=== PATIENT | male | born 1965 | race Caucasian/White ===

== ENCOUNTER 2019-06-03 19:49 | Emergency (ER) | payer OTHER, SELFPAY ==
[2019-06-03 19:50] VITALS: BP 127/76; PULSE 107; RESP 16; TEMP 36.7; O2SAT 97; BMI 36.1
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
--- NOTE | 2019-06-03 21:06 | ED.RN ---
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
== END 2019-06-03 22:06 | disposition home or self-care (01) ==
PROVIDERS: Emergency Provider Emergency Medicine; Family Provider Preventive Medicine Occupational Medicine; PCP Preventive Medicine Occupational Medicine
DX: S70.02XA Contusion of left hip, initial encounter (principal); S80.811A Abrasion, right lower leg, initial encounter; V03.10XA Pedestrian on foot injured in collision with car, pick-up truck or van in traffic accident, initial encounter; Y93.01 Activity, walking, marching and hiking; Y92.480 Sidewalk as the place of occurrence of the external cause; I25.10 Atherosclerotic heart disease of native coronary artery without angina pectoris; Z79.02 Long term (current) use of antithrombotics/antiplatelets; Z79.899 Other long term (current) drug therapy
CPT/HCPCS: 73502; 99282

== ENCOUNTER 2019-06-06 19:13 | Emergency (ER) | payer OTHER, SELFPAY ==
[2019-06-06 19:14] VITALS: BP 152/83; PULSE 100; RESP 20; TEMP 36.3; O2SAT 98; BMI 36.3
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
[2019-06-06 22:31] VITALS: RESP 18
== END 2019-06-06 22:34 | disposition home or self-care (01) ==
PROVIDERS: Emergency Provider Emergency Medicine; Family Provider Preventive Medicine Occupational Medicine; PCP Preventive Medicine Occupational Medicine
DX: S87.81XA Crushing injury of right lower leg, initial encounter (principal); S80.811A Abrasion, right lower leg, initial encounter; S80.11XA Contusion of right lower leg, initial encounter; V03.99XA Pedestrian with other conveyance injured in collision with car, pick-up truck or van, unspecified whether traffic or nontraffic accident, initial encounter; Y93.9 Activity, unspecified; Y92.9 Unspecified place or not applicable; Y99.0 Civilian activity done for income or pay; I25.10 Atherosclerotic heart disease of native coronary artery without angina pectoris; I10 Essential (primary) hypertension; K21.9 Gastro-esophageal reflux disease without esophagitis; E11.9 Type 2 diabetes mellitus without complications; Z79.4 Long term (current) use of insulin; Z79.82 Long term (current) use of aspirin; Z79.02 Long term (current) use of antithrombotics/antiplatelets; Z79.899 Other long term (current) drug therapy
CPT/HCPCS: 73590; 73610; 99282

== ENCOUNTER → 2025-05-09 | Outpatient (CLI) | payer OTHER, SELFPAY ==
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
--- OUTSIDE RECORDS SUMMARY | 2025-05-09 10:43 | XMS RPT_ITS | CCD ---
Author Organization [facility] Care Team Providers Care [place] Driver Name Role Phone KEVIN BOOKER DO Primary Care Physician [phone] Kevin Booker DO Primary Care Provider Marine Burgess MD Unavailable Marine Burgess MD Unavailable PAULINE ZAMARRIPA, DR MILTON Swift Attending KEVIN Hudson DO Primary Care Unavailable KEVIN BOOKER DO Attending Unavailable KEVIN BOOKER DO Primary Care Unavailable KEVIN BOOKER DO Attending Unavailable KEVIN BOOKER DO Primary Care Unavailable Kevin Booker DO Primary Care Provider MARINE BURGESS Referring Unavailable MARINE BURGESS Attending Unavailable KEVIN BOOKER Primary Care Unavailable KEVIN BOOKER DO Attending Unavailable KEVIN BOOKER DO Primary Care Unavailable Dr. Kevin Booker DO Primary Care Provider [phone] Dr. Kevin Booker DO Referring Provider Irasema Mayes Attending Provider Irasema Dhillon Referring Unavailable Irasema Dhillon Attending Unavailable Kevin Booker Primary Care Unavailable Kevin Booker Primary Care Unavailable Irasema Dhillon Attending Unavailable Kevin Booker Referring Unavailable Allergies Allergy Classification Reported Allergen(s) Allergy Type Date of Onset Reaction(s) Facility (7 sources) Codeine; Translations: [codeine] Drug Allergy 3 Swelling [facility] (3 sources) dulaglutide; Translations: [dulaglutide] Drug Allergy 0 Nausea and vomiting (disorder) [facility] (1 source) Lidocaine Drug Allergy 5 [facility] (2 sources) Procaine; Translations: [procaine HCl] Drug Allergy 5 [facility] (1 source) Codeine Drug Allergy 5 [facility] (1 source) Lidocaine Drug Allergy 5 [facility] Medications Current Medications Medication Drug Class(es) Dates Sig (Normalized) Sig (Original) acetaminophen 325 mg oral tablet (2 sources) Start: 05-31-2016 take 2 tablets by mouth every four hours as needed acetaminophen (TYLENOL) 325 mg tablet Take 2 tablets by mouth every 4 hours as needed for Fever (For Temp>38.5C). 0 05/31/2016 Active Comment on above: Take 2 tablets by mo uth every 4 hours as needed for Fever (For Temp>38.5C). apixaban 5 mg oral tablet (3 sources) Factor Xa Inhibitor Start: 05-20-2024 take 1 tablet by mouth twice daily apixaban (ELIQUIS) 5 mg tab(s) Take 1 tablet by mouth two times a day. 05/20/2024 Active Start: 10-27-2023 apixaban 5 mg oral tablet Dose : 5 mg = 1 tab(s), Oral, BID, # 60 tab(s), 5 Refill(s), [facility], 183, cm, 10/09/23 14:33:00 EST, Height, 130, kg, 10/09/23 14:33:00 EST, Dosing Weight Start Date: 10/27/23 Status: Ordered Start: 10-09-2023 End: 11-08-2023 Eliquis Starter Pack for Irvin atment of DVT and PE 5 mg oral tablet [10mg BID x 7days-then 5mg BID], Oral, BID, # 74 tab(s), 0 Refill(s), DVT Treatment Dosing, 130 Start Date: 10/09/23 Stop Date: 11/08/23 Status: Ordered Blood Glucose Test Machine (3 sources) Start: 07-15-2021 Blood Glucose Test Machine See Instructions, Use as directed to test blood sugar 4 times daily; this frequently due to fluctuating blood sugars. Brand type per insurance or patient preference, # 1 EA, 0 Refill(s), Pharmacy: [facility], 183, cm, 07/15/21 8:37:00 EDT, Height, 122.1, kg, 07/15/21 8:37:00 EDT, Dosing Weight Start Date: 07/15/21 Status: Ordered clopidogrel 75 mg oral tablet (6 sources) [id number] Platelet Inhibitor Start: 04-20-2018 take 1 tablet by mouth once daily Clopidogrel 75 MG tablet Active 75 mg PO DAILY June 03, 2019 12:00am Comment on above: Take 1 tablet by maverick th once daily. cyclobenzaprine hydrochloride 5 mg oral tablet (2 sources) Muscle Relaxant Start: 05-31-2016 take 1 tablet by mouth every twelve hours as needed cyclobenzaprine (FLEXERIL) 5 mg tablet Take 1 tablet by mouth twice daily as needed for Muscle Spasm. 60 tablet 0 05/31/2016 Active Comment on above: Take 1 tablet by maverick th twice daily as needed for Muscle Spasm. 0.5 ml dulaglutide 3 mg/ml auto-injector (3 sources) GLP-1 Receptor Agonist Start: 07-27-2019 dulaglutide (TRULICITY) 1.5 mg/0.5 mL pnij 1.5 mg weekly 4 Pen 07/27/2019 Active Start: 06-03-2019 End: 02-04-2021 Dulaglutide 0.75 MG/0.5 ML p en injector Discontinued 0.75 mg SQ EVERY WEEK June 03, 2019 12:00am February 04, 2021 8:23am TUESDAYS Comment on above: 1.5 mg weekly flash glucose sensor (FREESTYLE NIKI 14 DAY SENSOR) kit (2 sources) Start: 07-27-20 flash glucose sensor (FREESTYLE NIKI 14 DAY SENSOR) kit Apply subcutaneously every 14 days to monitor blood sugar. 2 Kit 07/27/2019 Active Comment on above: Apply subcutaneously every 14 days to monitor blood sugar. fluticasone propionate 0.05 mg/actuat metered dose nasal spray (2 sources) Corticosteroid take 2 spray(s) nasal route once daily fluticasone (FLONASE) 50 mcg/actuation nasal spray Use 2 Sprays in each nostril once daily. Active Comment on above: Use 2 Sprays in each nostril once daily. losartan potassium 25 mg oral tablet (6 sources) Angiotensin 2 Receptor [place] Start: 11-06-19 23 losartan (COZAAR) 25 mg tablet 25 mg. 11/06/2022 Active Start: 10-09-2021 Losartan 50 mg tablet Active NMA PO October 09, 2021 1:00am Comment on above: 25 mg. magnesium oxide 400 mg oral tablet (2 sources) Start: 6 take 1 tablet by mouth twice daily magnesium oxide (MAG-OX) 400 mg tablet Take 1 tablet by mouth twice daily. 0 05/31/2016 Active Comment on above: Take 1 tablet by maverick th twice daily. MULTIVITAMIN-FERROUS FUMARATE-FOLIC ACID 18 MG-400 MCG TABLET (2 sources) Start: 6 take 1 tablet by mouth once daily MULTIVITAMIN-FERROUS FUMARATE-FOLIC ACID 18 MG-400 MCG TABLET Take 1 tablet by mouth once daily. 0 05/31/2016 Active Comment on above: Take 1 tablet by maverick th once daily. pantoprazole 40 mg delayed release oral tablet (4 sources) Proton Pump Inhibitor Start: 9 take 1 tablet by mouth once daily pantoprazole 40 mg oral enteric coated tablet See Instructions, TAKE 1 TABLET BY MOUTH DAILY, # 90 tab(s), 3 Refill(s), [facility]), 183, cm, 11/06/22 8:00:00 EST, Height, kg, 11/06/22 8:00:00 EST, Dosing Weight Start Date: 11/06/22 Status: Ordered Pen needles 5 mm (3 sources) Start: 3 Pen needles 5 mm See Instructions, Use 1 needle 5 times daily to inject insulins; diagnosis: E 11.9, # 450 EA, 3 Refill(s), Pharmacy: [facility] ([facility]), Diabetes, 183, cm, 11/06/22 8:00:00 EST, Height, 125.9, kg, 11/06/22 8:00:00 EST, Dosing Weight Start Date: 11/06/22 Status: Ordered traMADol hydrochloride 50 mg oral tablet (2 sources) Opioid Agonist Start: 6 take 1 tablet by mouth every six hours as needed traMADol (ULTRAM) 50 mg tablet Take 1 tablet by mouth every 6 hours as needed. 40 tablet 0 05/31/2016 Active Comment on above: Take 1 tablet by maverick th every 6 hours as needed. Completed/Discontinued Medications Medication Drug Class(es) Dates Sig (Normalized) Sig (Original) aspirin 81 mg chewable tablet (1 source) Platelet Aggregation Inhibitor, Nonsteroidal Anti-inflammatory Drug Start: 05-31-2016 End: 05-20-2023 take 2 tablets by mouth once daily aspirin 81 mg chewable tablet Take 2 tablets by mouth once daily. 0 05/31/2016 05/20/2023 Discontinued Comment on above: Take 2 tablets by mo [facility] once daily. atorvastatin 80 mg oral tablet (6 sources) HMG-CoA Reductase Inhibitor Start: 01-25-2016 End: 03-03-2025 take 1 tablet by mouth at bedtime Atorvastatin 80 MG tablet Discontinued 80 mg PO AT BEDTIME June 03, 2019 12:00am March 03, 2025 9:26am Comment on above: Take 1 tablet by maverick once daily. gabapentin 800 mg oral tablet (3 sources) Anti-epileptic Agent Start: 12-25-2014 End: 02-04-2021 Gabapentin 800 MG tablet Discontinued 600 mg PO DAILY December 25, 2014 12:00am February 04, 2021 8:22am take 800 mg by mouth three times daily GABAPENTIN ORAL Take 800 mg by mouth three times daily. Active Comment on above: Take 800 mg by mouth three times daily. 3 ml insulin aspart, human 100 unt/ml pen injector (6 sources) Insulin Analog Start: 11-06-2022 End: 11-01-2023 inject 1 dose by subcutaneous injection four times daily NovoLOG FlexPen 100 units/mL injectable solution Dose : 60 unit(s) =, Subcutaneous, QID, # 216 mL, 3 Refill(s), Pharmacy: [facility] ([facility]), 183, cm, 11/06/22 8:00:00 EST, Height, kg, 11/06/22 8:00:00 EST, Dosing Weight Start Date: 11/06/22 Stop Date: 11/01/23 Status: Ordered Start: 06-03-2019 Insulin Aspart U-100 100 UNITS/ML insulin pen Active 0 U SC 3 TIMES DAILY WITH MEALS June 03, 2019 12:00am Please contact the information source for Protocol details. insulin aspart ( NOVOLOG FLEXPEN) 100 unit/mL inpn Indications: Uncontrolled type 2 diabetes mellitus with complication, with long-term current use of insulin Inject subcutaneously daily with breakfast. Sliding scale according to meter reading. 10 to 30 Active Comment on above: Inject subcutaneously daily with breakfa st. Sliding scale according to meter reading. 10 to 30 3 ml insulin degludec 200 unt/ml pen injector (7 sources) Insulin Analog Start: 11-06-19 End: 11-01-19 inject 1 dose by subcutaneous injection once daily Tresiba FlexTouch 200 units/mL 3 mL subcutaneous solution Dose : 130 unit(s) =, Subcutaneous, qDay, # 120 mL, 3 Refill(s), Pharmacy: [facility]), 183, cm, 11/06/22 8:00:00 EST, Height, kg, 11/06/22 8:00:00 EST, Dosing Weight Start Date: 11/06/22 Stop Date: 11/01/23 Status: Ordered Start: 10-09-2021 End: 11-01-2023 inject 1 dose by subcutaneous injection once daily Tresiba FlexTouch 200 units/mL 3 mL subcutaneous solution Dose : 140 unit(s) =, Subcutaneous, qDay, # 9 mL, 3 Refill(s), Pharmacy: [facility]), 183, cm, 11/06/22 8:00:00 EST, Height, kg, 11/06/22 8:00:00 EST, Dosing Weight Start Date: 11/06/22 Stop Date: 11/01/23 Status: Ordered Start: 06-03-2019 End: 02-04-2021 Insulin Degludec 100 UNIT/ML insulin pen Discontinued 100 U SQ AT BEDTIME June 03, 2019 12:00am February 04, 2021 8:22am Start: 09-23-2016 insulin deglud ec (TRESIBA FLEXTOUCH U-200) 200 unit/mL (3 mL) injection Indications: Uncontrolled type 2 diabetes mellitus with complication, with long-term current use of insulin Use up to 100 units daily 09/23/2016 Active Comment on above: Use up to 100 units daily lisinopril 10 mg oral tablet (2 sources) Angiotensin Converting Enzyme Inhibitor Start: 5 End: 3 take 1 tablet by mouth once daily lisinopril (PRINIVIL) 10 mg tablet Take 1 tablet by mouth once daily. 0 07/21/2016 05/20/2023 Discontinued Comment on above: Take 1 tablet by maverick th once daily. 60 actuat testosterone 30 mg/actuat topical solution (5 sources) Androgen Start: 3 End: 3 testosterone 30 mg/actuation transdermal solution 2 pump(s), Transdermal, qDay, # 330 mL, 1 Refill(s), Pharmacy: [facility] ([facility]), Hypogonadism male, 183, cm, 11/06/22 8:00:00 EST, Height, 125.9, kg, 11/06/22 8:00:00 EST, Dosing Weight Start Date: 11/06/22 Stop Date: 05/05/23 Status: Ordered testosterone (AX IRON) 30 mg/actuation (1.5 mL) slpm Apply as directed. Active Comment on above: Apply as directed. Problems Active Problems Problem Classification Problem Date Documented Da te Episodic/Chronic Acute myocardial infarction (1 source) Myocardial infarction; Translations: [Non-ST elevation (NSTEMI) myocardial infarction] 12-26-2014 Chronic Coronary atherosclerosis and other heart disease (7 sources) Coronary arteriosclerosis in [place] artery; Translations: [Coronary arteriosclerosis] Onset: 5 07-11-2019 Chronic Coronary atherosclerosis and other heart disease (4 sources) Drug coated stent in circumflex branch of left coronary artery; Translations: [Presence of coronary angioplasty implant and graft] Onset: 6 05-20-2023 Episodic Diabetes mellitus without complication (5 sources) Diabetes mellitus; Translations: [Type 2 diabetes mellitus without complications] Onset: 3 Resolved: 5 07-11-2019 Chronic Diseases of mouth; excluding dental (3 sources) Ulcer of mouth 10-02-2020 Episodic Disorders of lipid metabolism (5 sources) Hyperlipidemia; Translations: [Hyperlipidemia, unspecified] Onset: 3 08-10-2019 Chronic Esophageal disorders (3 sources) Gastroesophageal reflux disease without esophagitis 07-11-2019 Chronic Essential hypertension (4 sources) Essential hypertension; Translations: [Hypertensive disorder] 08-10-2019 Chronic Genitourinary symptoms and ill-defined conditions (2 sources) Urinary incontinence; Translations: [Unspecified urinary incontinence] Onset: 5 03-08-2015 Chronic Nonspecific chest pain (2 sources) Chest discomfort; Translations: [Other chest pain] Onset: 3 Resolved: 5 01-24-2015 Episodic Other connective tissue disease (1 source) Impingement syndrome of shoulder region; Translations: [Impingement syndrome of right shoulder] 02-04-2021 Episodic Other endocrine disorders (3 sources) Male hypogonadism 07-11-2019 Chronic Other gastrointestinal disorders (2 sources) Diarrhea 10-07-2023 Episodic Other liver diseases (2 sources) Steatosis of liver; Translations: [Fatty (change of) liver, not elsewhere classified] Onset: 5 01-03-2015 Chronic Other lower respiratory disease (3 sources) Chronic cough 01-14-2021 Episodic Other nervous system disorders (2 sources) Thoracic outlet syndrome; Translations: [Brachial plexus disorders] Onset: 3 06-07-2013 Chronic Other nervous system disorders (1 source) Neuropathy; Translations: [Polyneuropathy, unspecified] 12-25-2014 Chronic Other non-traumatic joint disorders (2 sources) Multiple joint pain 10-07-2023 Episodic Other non-traumatic joint disorders (1 source) Pain in left shoulder; Translations: [Left shoulder pain] 02-04-2021 Episodic Other non-traumatic joint disorders (1 source) Pain in right shoulder; Translations: [Right shoulder pain] 02-04-2021 Episodic Phlebitis; thrombophlebitis and thromboembolism (3 sources) Acute deep vein thrombosis of lower limb; Translations: [Acute embolism and thrombosis of unspecified deep veins of unspecified lower extremity] Onset: Episodic Residual codes; unclassified (5 sources) Sleep apnea; Translations: [Sleep apnea, unspecified] Onset: 5 08-09-2019 Chronic Residual codes; unclassified (2 sources) Obstructive sleep apnea syndrome; Translations: [Obstructive sleep apnea (adult) (pediatric)] Onset: 3 09-09-2021 Chronic Residual codes; unclassified (3 sources) Chronic pain 01-13-2020 Episodic Residual codes; unclassified (3 sources) Edema of lower extremity 01-16-2021 Episodic Residual codes; unclassified (2 sources) At risk for infection 10-07-2023 Episodic Residual codes; unclassified (1 source) Localized edema; Translations: [Localized edema] Onset: 5 Episodic Spondylosis; intervertebral disc disorders; other back problems (12 sources) Backache; Translations: [Dorsalgia, unspecified] Onset: 3 10-19-2014 Episodic Superficial injury; contusion (1 source) Contusion of hip; Translations: [Contusion of left hip, initial encounter] 06-04-2019 Episodic Unclassified (3 sources) Medication refused 09-11-2021 Unclassified (9 sources) Patient encounter status 07-11-2019 Unclassified (2 sources) Type 2 diabetes mellitus without complication; Translations: [Diabetes mellitus type 2, uncontrolled, without complications] Onset: 5 01-24-2015 Past or Other Problems Problem Classification Problem Date Documented Da te Episodic/Chronic Other screening for suspected conditions (not mental disorders or infectious disease) (2 sources) Decreased testosterone level ; Translations: [Other specified abnormal findings of blood chemistry] Onset: 02-27-2015 02-27-2015 Episodic Unclassified (1 source) Abrasion, right lower leg, initial encounter 06-04-2019 Results Test Name Value Interpretation Reference Range Facility MR/BMSSg 03-03-2025 MR/BMSKAILA [facility] [address] [place] [address]. [address] [place] [address] OFFICE VISIT Date of Service: 03/03/25 MR#: [id number] Acct: [id number] Name: JOHN CHAPA Fuad Rep #: [id number] : 1965 Provider: DIAZ Yee Age/Sex: 59/M Location: [facility] Status: Signed Intake Vital Signs 03/03/25 09:27 Height 6 ft Weight: 290 lb BMI 39.3 BP 142/78 H Blood Pressure Location Lt brachial Position Sitting Respiration 16 Pulse 89 Pulse Source Monitor Temp 99.6 F H Temp Source Temporal Pulse Oximetry (%) 96 Oxygen Delivery Method room air Intake Visit Reasons: Second opinion, varicose Chief Complaint: cp Is patient in pain?: Yes Allergies codeine Allergy (Verified 03/03/25 09:25) Anaphylaxis lidocaine Adverse Reaction (Verified 03/03/25 09:25) Rash procaine HCl (From Novocain) Adverse Reaction (Verified 03/03/25 09:25) Rash Medications ???Medication ???Instructions ???Recorded ???Confirmed ???Type clopidogrel 75 mg tablet 75 mg PO DAILY 06/03/19 03/03/25 H istory insulin aspart U-100 100 unit/mL See Protocol subcut TIDCM 06/03/19 03/03/25 History (3 mL) subcutaneous pen pantoprazole 40 mg tablet,delayed 40 mg PO DAILY 06/03/19 03/03/25 History release insulin degludec 200 unit/mL (3 ml subcut 10/09/21 03/03/25 Histor y mL) subcutaneous pen lancets 30 gauge #100 ea 10/09/21 03/03/25 History losartan 50 mg tablet tablet PO 10/09/21 03/03/25 Histor y pen needle, diabetic 31 gauge x #50 ea 10/09/21 03/03/25 History 11/27 Have you fallen in the past year?: No PFSH Surgical History History of open heart surgery Family History (Updated 03/03/25 @ 09:24 by Opal Martines MA) Mother Cancer Father Diabetes Heart disease Myocardial infarction Grandfather Myocardial infarction Other Hypertension Sudden cardiac Social History household members: spouse Smoking Status: Never smoker alcohol intake: never HPI HPI HPI: JOHN CHAPA, is a 59 M who presents to the office today for consultation regarding varicose veins. He has previously followed with Dr. Tatum, we received some records which I reviewed. In Aug 2024, he was diagnosed with a acute DVT up to the L femoral vein, in January 2024 had duplex showing only chronic DVT residual in the L popliteal and gastroc veins, 11/21/24 he had L GSV EVLT, 12/05/24 he had R GSV Venaseal ablation, in 12/2024 he had R distal GSV Varithena and L distal GSV Varithena. He had venous ultrasound 02/08/25 at [facility] which reported successful R GSV ablation, L GSV ablation and no remaining varicosities and had appt with Dr. Tatum the same day with plan for repeat ultrasound in 6 months to re-evaluate chronic popliteal DVT He reports he was told he could stop the Eliquis but did not feel comfortable doing so because they did not tell him why it was safe to do so when he still supposedly had L popliteal clot. He reports that he has actually had increased pain and swelling in his RLE since the ablations that was not present prior, he reports he had no issues in the RLE prior to the ablations and does not really understand why he had to have them. For these reasons, he has elected to seek a second opinion at our office. With respect to the LLE DVT, this was his first DVT. Shortly prior to the DVT diagnosis he'd had COVID and had significant symptoms and decreased activity with that. 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 He does also have significant disc disease in his back.He denies any family history of VTE or clotting disorders. He has been on Eliquis without stopping since Aug 2024. 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 Currently, his primary complaint is residual swelling and discomfort in his legs. 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 He is most bothered by the persistent tenderness to touch and sensation of pruritus/tingling along his medial R calf. He also has noticed increased tingling/numbness in his bilateral feet since the venous procedures as well though again he does notably have both byron (more content not included)... Normal [facility] TFTESTon 12-16-2024 Free Testost Direct 3.9 pg/mL Low 6.6-18.1 [facility] Comment on above: Result Comment: Perf ormed At: [facility] [address] [id number] Brian Mao MD Ph:[phone] Performed At: [facility] [address] [id number] Elena Ozuna PhD Ph:[phone] Performed By: #### L IPID, CMP, A1C, PSA, GFR, [id number] #### [address] [address] Testosterone Lvl 145 ng/dL Low 264-916 [facility] Comment on above: Result Comment: Adul t male reference interval is based on a population of healthy nonobese males (BMI <30) between 19 and 39 years old. hugo Saleem.al. JCEM 2017,102;[id number]. PMID: [id number]. Performed By: #### L IPID, CMP, A1C, PSA, GFR, [id number] #### [address] [address] .Auto Diffon 12-09-2024 Basophil, Absolute 0.0 10 3/mcL Normal 0.0-0.2 [facility] Comment on above: Performed By: #### A DIFF, CBC, ANEU #### [address] [address] Basophils/100 WBC (Bld) 0.5 % Normal 0.0-2.5 [facility] Comment on above: Performed By: #### A DIFF, CBC, ANEU #### [address] [address] Eosinophil, Absolute 0.2 10 3/mcL Normal 0.0-0.[address] [facility] Comment on above: Performed By: #### A DIFF, CBC, ANEU #### [address] [address] Eosinophils/100 WBC (Bld) 3.0 % Normal 0.0-7.0 [facility] Comment on above: Performed By: #### A DIFF, CBC, ANEU #### [address] [address] Lymphocyte, Absolute 1.9 10 3/mcL Normal 0.9-4.[address] [facility] Comment on above: Performed By: #### A DIFF, CBC, ANEU #### [address] [address] Lymphocytes/100 WBC (Bld) 28.0 % Normal 20.0-40.0 [facility] Comment on above: Performed By: #### A DIFF, CBC, ANEU #### [address] [address] Monocyte, Absolute 0.5 10 3/mcL Normal 0.1-1.4 [facility] Comment on above: Performed By: #### A DIFF, CBC, ANEU #### [address] [address] Monocytes/100 WBC (Bld) 7.3 % Normal 2.0-13.0 [facility] Comment on above: Performed By: #### A DIFF, CBC, ANEU #### [address] [address] Neutrophils/100 WBC (Bld) 61.2 % Normal 50.0-75.0 [facility] Comment on above: Performed By: #### A DIFF, CBC, ANEU #### [address] [address] .GFRon 12-09-2024 Estimated Glomerular Filtration Rate 85 ml/min/1.73sqm Normal [facility] Comment on above: Result Comment: Stages of Chronic Kidney Disease (CKD) Stage Description eGFR(ml/min/1.73 sq.m.) CKD 1 Normal kidney function or >=90 normal kindney function with possible kidney damage (ex. Proteinuria) CKD 2 Kidney damage with mild loss 60-89 of kidney function CKD 3a Mild to moderate loss of kidney 45-59 function CKD 3b Moderate to severe loss of 30-44 of kindey function CKD 4 Severe loss of kidney function 15-29 CKD 5 Kidney failure <15 Note: (go live 2024) the eGFR calculation was updated to the 2020 CKD-EPI creatinine equation without a race factor to calculate the eGFR results. Performed By: #### L IPID, CMP, A1C, PSA, GFR, [id number] #### [address] [address] .NEUABSon 12-09-2024 Neutrophil, Absolute 4.3 10 3/mcL Normal 2.3-8.[address] [facility] Comment on above: Performed By: #### A DIFF, CBC, ANEU #### [address] [address] A1Con 12-09-2024 Glucose [Mass/Vol] 163 mg/dL Normal [facility] Comment on above: Result Comment: Jessenia mated Average Glucose calculated by equation ((28.7xA1C)-46.7) Estimated average glucose (eAG) is a calculated value from Hemoglobin A1C and is textile designs sales representative of the average blood glucose level in the last 2-3 month period. Normal range: less than 114 mg/dL Performed By: #### L IPID, CMP, A1C, PSA, GFR, [id number] #### [place] [address] HbA1c (Bld) [Mass fraction] 7.3 % High 4.3-6.4 [facility] [place] Comment on above: Performed By: #### L IPID, CMP, A1C, PSA, GFR, [id number] #### [address] [address] CBCon 12-09-2024 Erythrocyte distribution width (RBC) [Ratio] 12.8 % Normal 11.5-15.5 [facility] [place] Comment on above: Performed By: #### A DIFF, CBC, ANEU #### [place] [address] Hematocrit (Bld) [Volume fraction] 47.5 % Normal 40.0-52.0 [facility] [place] Comment on above: Performed By: #### A DIFF, CBC, ANEU #### [place] [address] Hgb 16.4 G/dL Normal 13.0-17.5 [facility] [place] Comment on above: Performed By: #### A DIFF, CBC, ANEU #### [place] [id number] MCH (RBC) [Entitic mass] 33.1 pg High 27.0-33.0 [facility] [place] Comment on above: Performed By: #### A DIFF, CBC, ANEU #### [address] [address] MCHC 34.6 G/dL Normal 32.0-36.0 [facility] [place] Comment on above: Performed By: #### A DIFF, CBC, ANEU #### [address] [address] MCV (RBC) [Entitic vol] 95.8 fL Normal 81.0-100.0 [facility] [place] Comment on above: Performed By: #### A DIFF, CBC, ANEU #### [address] [address] Platelet 242 10 3/mcL Normal 150-450 [facility] [place] Comment on above: Performed By: #### A DIFF, CBC, ANEU #### [address] [address] Platelet mean volume (Bld) [Entitic vol] 7.7 fL Normal 6.4-10.5 [facility] [place] Comment on above: Performed By: #### A DIFF, CBC, ANEU #### [address] [address] RBC 4.96 10 6/mcL Normal 4.50-6.00 [facility] [place] Comment on above: Performed By: #### A DIFF, CBC, ANEU #### [address] [address] WBC 6.9 10 3/mcL Normal 4.5-10.8 [facility] [place] Comment on above: Performed By: #### A DIFF, CBC, ANEU #### [address] [address] CMPon 12-09-2024 Albumin Level 3.7 G/dL Normal 3.4-4.8 [facility] [place] Comment on above: Performed By: #### L IPID, CMP, A1C, PSA, GFR, [id number] #### [address] [address] Albumin/Globulin [Mass ratio] 1.0 {ratio} Low 1.1-2.5 [facility] [place] Comment on above: Performed By: #### L IPID, CMP, A1C, PSA, GFR, [id number] #### [address] [address] ALP [Catalytic activity/Vol] 79 U/L Normal 40-135 [facility] [place] Comment on above: Performed By: #### L IPID, CMP, A1C, PSA, GFR, [id number] #### [address] [address] ALT [Catalytic activity/Vol] 36 U/L Normal 16-63 [facility] [place] Comment on above: Performed By: #### L IPID, CMP, A1C, PSA, GFR, [id number] #### [address] [address] AST [Catalytic activity/Vol] 17 U/L Normal 10-40 [facility] [place] Comment on above: Performed By: #### L IPID, CMP, A1C, PSA, GFR, [id number] #### [address] [address] Bili Total 0.5 mg/dL Normal 0.2-1.0 [facility] [place] Comment on above: Result Comment: Use of this assay is not recommended for patients undergoing treatment with eltrombopag due to the potential for falsely elevated results. Performed By: #### L IPID, CMP, A1C, PSA, GFR, [id number] #### [address] [address] BUN/Creatinine Ratio 24 ratio Normal 7-27 [facility] Comment on above: Performed By: #### L IPID, CMP, A1C, PSA, GFR, [id number] #### [address] [address] Calcium [Mass/Vol] 9.5 mg/dL Normal 8.4-10.2 [facility] Comment on above: Performed By: #### L IPID, CMP, A1C, PSA, GFR, [id number] #### [address] [address] Chloride [Moles/Vol] 99 mmol/L Normal 98-107 [facility] Comment on above: Performed By: #### L IPID, CMP, A1C, PSA, GFR, [id number] #### [address] [address] CO2 [Moles/Vol] 26 mmol/L Normal 23-31 [facility] [place] Comment on above: Performed By: #### L IPID, CMP, A1C, PSA, GFR, [id number] #### [address] [address] Creatinine [Mass/Vol] 1.01 mg/dL Normal 0.70-1.30 [facility] Comment on above: Result Comment: Test ing performed on [employer] Dimension EXL analyzer using a modified kinetic Dave technique. Performed By: #### L IPID, CMP, A1C, PSA, GFR, [id number] #### [address] [address] Electrolyte Balance 8.0 mEq/L Normal 4.0-15.0 [facility] Comment on above: Performed By: #### L IPID, CMP, A1C, PSA, GFR, [id number] #### [address] [address] Globulin 3.8 G/dL Normal 1.5-3.8 [facility] [place] Comment on above: Performed By: #### L IPID, CMP, A1C, PSA, GFR, [id number] #### [address] [address] Glucose [Mass/Vol] 229 mg/dL High 80-115 [facility] Comment on above: Performed By: #### L IPID, CMP, A1C, PSA, GFR, [id number] #### [address] [address] Potassium [Moles/Vol] 3.8 mmol/L Normal 3.5-5.1 [facility] Comment on above: Performed By: #### L IPID, CMP, A1C, PSA, GFR, [id number] #### [address] [address] Sodium [Moles/Vol] 133 mmol/L Low 136-145 [facility] Comment on above: Performed By: #### L IPID, CMP, A1C, PSA, GFR, [id number] #### [address] [address] Total Protein 7.5 G/dL Normal 6.4-8.2 [facility] [place] Comment on above: Performed By: #### L IPID, CMP, A1C, PSA, GFR, [id number] #### [address] [address] Urea nitrogen [Mass/Vol] 24 mg/dL High 7-18 [facility] [place] Comment on above: Performed By: #### L IPID, CMP, A1C, PSA, GFR, [id number] #### [address] [address] LIPIDon 12-09-2024 Cholesterol [Mass/Vol] 214 mg/dL High 0-200 [facility] [place] Comment on above: Result Comment: Chol esterol Reference Interval: Less than 200 Desirable 200-239 Borderline high risk 240 and above High risk Performed By: #### L IPID, CMP, A1C, PSA, GFR, [id number] #### [address] [address] Cholesterol in HDL [Mass/Vol] 40 mg/dL Normal 40-60 [facility] [place] Comment on above: Performed By: #### L IPID, CMP, A1C, PSA, GFR, [id number] #### [address] [address] Cholesterol in LDL [Mass/Vol] 115 mg/dL Normal 0-130 [facility] [place] Comment on above: Performed By: #### L IPID, CMP, A1C, PSA, GFR, [id number] #### [address] [address] Triglyceride [Mass/Vol] 297 mg/dL High 0-150 [facility] [place] Comment on above: Result Comment: Trig lyceride Reference Interval: Less than 150 Normal 150-199 Borderline high risk 200-499 High risk 500 or higher Very high risk Performed By: #### L IPID, CMP, A1C, PSA, GFR, [id number] #### [facility] [address] [place], [place] [address] PSAon 12-09-2024 Prostate Specific Antigen 0.25 ng/mL Normal 0.00-4.00 [facility] [place] Comment on above: Performed By: #### L IPID, CMP, A1C, PSA, GFR, [id number] #### [facility] [address] [place], [place] [address] CNOVon 05-20-2024 CNOV Office Visit (CARDAV ) JOHN CHAPA ([id number]) 1965 M [facility] Time Provider Department 05/20/24 8:20 AM MARINE BURGESS During your visit today, we recorded the following information about you: Pulse Blood pressure Weight Height 92/minute 134/82 129.3 kg 1.829 m Marine Burgess MD 05/20/2024 8:52 AM Signed SUBJECTIVE: HPI: The patient is an extremely pleasant, 59-year-old gentleman, with a high risk factor profile for coronary artery disease, including family history of premature onset coronary disease and diabetes. The patient has well-documented coronary artery disease, having undergone drug-eluting stent ? 2 deployment to a ramus intermedius lesion at [facility] in December 2014. Catheterization also revealed mild left anterior descending disease and well-preserved left ventricular ejection fraction. At [facility] provocative nuclear testing, April 2016, there was evidence of 10% left ventricular mass ischemia, in the left anterior descending distribution. PROCEDURE: Left heart catheterization, selective coronary arteriogram, left ventriculogram and visualization of left internal mammary artery. FINDINGS: Hemodynamics: LV pressure: 116/EDP 15. Aortic Pressure: 112/69 mean 89. COMMENT: There was no gradient demonstrated from LV to aorta pullback. CORONARY ARTERIES: COMMENT: There is evidence of mild calcification of the coronary skeleton. LEFT MAIN: This is a large caliber, medium length, normal vessel. LEFT ANTERIOR DESCENDING: This is a medium to large caliber vessel with evidence of a 99% ostial/proximal stenosis with severe eccentric plaque as well as a 40% mid vessel stenotic segment. There is SALINAS grade 2 flow in the left anterior descending. RAMUS INTERMEDIUS: This is a large caliber vessel with evidence of widely patent previously deployed stents. CIRCUMFLEX: This is a large caliber, normal vessel. RIGHT CORONARY ARTERY: This is a large caliber, dominant vessel demonstrating 30% proximal luminal irregularity as well as 30% midvessel stenosis. LEFT INTERNAL MAMMARY ARTERY: This vessel was visualized via left subclavian cannulation. The left internal mammary artery is a medium caliber, widely patent vessel. LEFT VENTRICULOGRAM: This was obtained in the HENDERSON projection only. The left ventricle does not appear dilated. There are no discrete regional wall motion abnormalities. Left ventricular ejection fraction is normal, estimated at 60%. The ascending aorta is normal in caliber. The aortic valve appears trileaflet. There is no evidence of mitral regurgitation. IN SUMMARY: 1. Severe left anterior descending disease. 2. Mild right coronary artery disease. 3. Normal left ventricular function with ejection fraction estimated at 60%. The patient underwent coronary artery bypass grafting x 1 with left internal mammary artery to the left anterior descending, May 2016. The patient underwent evaluation by the electrophysiology service for chronic persistent sinus tachycardia. Atenolol was introduced but the patient was intolerant and the drug was discontinued. The patient had been lost to follow-up, due to loss of insurance coverage Echocardiogram, May 2019, revealed preserved left ventricular systolic function with an ejection fraction of 66%. There was evidence of mild dilatation of the ascending aorta, with the mid ascending aorta dimension of 3.4 cm. The patient had been lost to follow-up and [facility]. The patient has ongoing treatment for DVT, through Dr. Tatum, in [place]. CARDIAC HISTORY: SYMPTOMS: Chest pain/discomfort: No, Palpitations:No, Arrhythmia: No Dyspnea: No, Dyspnea at rest: No, Nocturnal dyspnea: Yes Orthopnea: No, Diaphoresis: No, Dizziness: No, Syncope: No, Edema: No, Nocturia: No, Impaired exercise tolerance: No, Claudication:No CONDITIONS: Hypertension: No, Heart failure:No, [place] [employer] Association Functional Classification: Class II, Atrial fibrillation:No, History of myocardial infarction/angina: Yes, History of CABG/PCI:Yes, Valvular heart disease: No, Cardiomyopathy: No, Aortic diseases: No, Peripheral vascular disease: No, History of cerebrovascular accident: No, History of pulmonary embolism No, History of DVT Yes. History of rheumatic fever: No, History of transient ischemic attacks: No, Congenital heart disease: No, Pericarditis: No, Pericardial Effusion: No CORONARY RISK FACTORS: Family history of coronary artery disease Yes: Family history CAD in a first degree relative brother Premature onset: Yes, Tobacco use No, Sedentary lifestyle Yes, Hypertension No, Hyperlipidemia Yes, Diabetes mellitus Yes, Obesity Yes, Peripheral vascular disease No. HISTORIES: FAMILY HISTORY Father: Coronary Artery Disease (dies at age of 54 [place] 99% Had CHF) Brother: Coronary Artery Disease (LAD block (more content not included)... Normal [facility] [id number] 05-20-2024 ECG01 Ventricular Rate : 9 2 BPM Atrial Rate : 92 BPM P-R Interval : 138 ms QRS Duration : 102 ms Q-T Interval : 378 ms QTC Calculation(Bazett) : 467 ms Calculated P [place] : 62 degrees Calculated R [place] : 65 degrees Calculated T [place] : 18 degrees NORMAL SINUS RHYTHM INCOMPLETE RIGHT BUNDLE BRANCH BLOCK Confirmed by LYDIA CASH MD ([id number]) on 06/06/2024 11:16:58 AM NAME : JOHN CHAPA PID : [id number] : 1965 Gender : Male Race : ORD : Procedure Date : May 20 2024 08:27:28 Edit Date : Jun 06 2024 11:17:01 Diagnosis: NORMAL SINUS RHYTHM INCOMPLETE RIGHT BUNDLE BRANCH BLOCK Confirmed by LYDIA CASH MD ([id number]) on 06/06/2024 11:16:58 AM Test Reason : Location : 192 : AVCRD Overread By : LYDIA CASH MD Edited By : LYDIA CASH MD Referred By : MARINE BURGESS Acquired by : , Normal [facility] ANAon 11-05-2023 Nuclear Ab IF (S) [Titer] 40 {titer} Normal Neg 40 On License Of [facility] ([place]) Comment on above: Result Comment: JODY Screen and Titer methodology is an immunofluorescent technique utilizing Hep2 Substrate. Performed By: #### A DIFF, CBC, BMP, GFR, TROPHS, MDW, PBNP, ANEU #### [facility] [place] [address] [place], [place] [address] LMERLYon 11-05-2023 Lyme Total Antibody HELLEN Negative Normal Negative On License Of [facility] ([place]) Comment on above: Result Comment: Lyme antibodies not detected. Reflex testing is not indicated. No laboratory evidence of infection with B. burgdorferi (Lyme disease). Negative results may occur in patients recently infected (less than or equal to 14 days) with B. burgdorferi. If recent infection is suspected, repeat testing on a new sample collected in 7 to 14 days is recommended. Performed At: [address] [id number] Elena Ozuna PhD Ph:[phone] Performed By: #### A DIFF, CBC, BMP, GFR, TROPHS, MDW, PBNP, ANEU #### [place] [id number] RFon 11-05-2023 Rheumatoid Factor <6.0 Normal <=5.9 On License Of [facility] ([place]) Comment on above: Result Comment: RF I gM Antibody by Enzyme Immunoassay: Negative < or = 6 Positive > 6 A positive result indicates the presence of RF antibodies and suggests the possibility of rheumatoid arthritis. A negative result indicates no RF IgM antibody or levels below the negative cut-off of the assay. Results of this assay should be used in conjunction with clinical findings and other serological tests. These results were obtained with the [employer] QUANTA Lite RF IgM DC. RF IgM values obtained with different manufacturers' assay methods may not be used interchangeably. The magnitude of the reported IgM levels cannot be correlated to an endpoint titer. Performed By: #### A DIFF, CBC, BMP, GFR, TROPHS, MDW, PBNP, ANEU #### [address] [address] .Auto Diffon 11-04-2023 Basophil, Absolute 0.1 10 3/mcL Normal 0.0-0.2 [facility] ([place]) Comment on above: Performed By: #### A DIFF, CBC, BMP, GFR, TROPHS, MDW, PBNP, ANEU #### [address] [address] Basophils/100 WBC (Bld) 0.8 % Normal 0.0-2.5 On [facility] ([place]) Comment on above: Performed By: #### A DIFF, CBC, BMP, GFR, TROPHS, MDW, PBNP, ANEU #### [address] [address] Eosinophil, Absolute 0.2 10 3/mcL Normal 0.0-0.4 [facility] ([place]) Comment on above: Performed By: #### A DIFF, CBC, BMP, GFR, TROPHS, MDW, PBNP, ANEU #### [address] [address] Eosinophils/100 WBC (Bld) 2.8 % Normal 0.0-7.0 On License [facility] ([place]) Comment on above: Performed By: #### A DIFF, CBC, BMP, GFR, TROPHS, MDW, PBNP, ANEU #### [address] [address] Lymphocyte, Absolute 2.2 10 3/mcL Normal 0.8-3.9 [facility] ([place]) Comment on above: Performed By: #### A DIFF, CBC, BMP, GFR, TROPHS, MDW, PBNP, ANEU #### [address] [address] Lymphocytes/100 WBC (Bld) 31.7 % Normal 10.0-50.0 On License [facility] ([place]) Comment on above: Performed By: #### A DIFF, CBC, BMP, GFR, TROPHS, MDW, PBNP, ANEU #### [address] [address] Monocyte, Absolute 0.7 10 3/mcL Normal 0.2-1.0 [facility] ([place]) Comment on above: Performed By: #### A DIFF, CBC, BMP, GFR, TROPHS, MDW, PBNP, ANEU #### [address] [address] Monocytes/100 WBC (Bld) 10.9 % Normal 1.7-13.0 On License [facility] ([place]) Comment on above: Performed By: #### A DIFF, CBC, BMP, GFR, TROPHDrew, KEIKO, PBNP, ANEU #### [address] [address] Neutrophils/100 WBC (Bld) 53.8 % Normal 37.0-80.0 On [facility] ([place]) Comment on above: Performed By: #### A DIFF, CBC, BMP, GFR, TROPHDrew, W, PBNP, ANEU #### [address] [address] .GFRon 11-04-2023 GFR 93 ml/min/1.73sqm Normal On License Of [facility] ([place]) Comment on above: Result Comment: GFR Population mean for , Non- Americans Ages 20-29 = 116 mL/min/1.73 sq.m. Ages 30-39 = 107 mL/min/1.73 sq.m. Ages 40-49 = 99 mL/min/1.73 sq.m. Ages 50-59 = 93 mL/min/1.73 sq.m. Ages 60-69 = 85 mL/min/1.73 sq.m. Ages 70+ = 75 mL/min/1.73 sq.m. Chronic Kidney Disease: Less than 60 mL/min/1.73 square meters End Stage Renal Disease: Less than 15 mL/min/1.73 square meters Performed By: #### A DIFF, CBC, BMP, GFR, TROPHS, W, PBNP, ANEU #### [address] [address] GFR Non- 76 ml/min/1.73sqm Normal On License Of [facility] ([place]) Comment on above: Result Comment: GFR Population mean for , Non- Americans Ages 20-29 = 116 mL/min/1.73 sq.m. Ages 30-39 = 107 mL/min/1.73 sq.m. Ages 40-49 = 99 mL/min/1.73 sq.m. Ages 50-59 = 93 mL/min/1.73 sq.m. Ages 60-69 = 85 mL/min/1.73 sq.m. Ages 70+ = 75 mL/min/1.73 sq.m. Chronic Kidney Disease: Less than 60 mL/min/1.73 square meters End Stage Renal Disease: Less than 15 mL/min/1.73 square meters Performed By: #### A DIFF, CBC, BMP, GFR, TROPHS, MDW, PBNP, ANEU #### [place] [id number] .NEUABSon 11-04-2023 Neutrophil, Absolute 3.7 10 3/mcL Normal 2.9-6.2 [facility] ([place]) Comment on above: Performed By: #### A DIFF, CBC, BMP, GFR, TROPHS, MDW, PBNP, ANEU #### [place] [address] CBCon 11-04-2023 Erythrocyte distribution width (RBC) [Ratio] 12.7 % Normal 11.5-14.5 On License Of [facility] ([place]) Comment on above: Performed By: #### A DIFF, CBC, BMP, GFR, TROPHS, MDW, PBNP, ANEU #### [place] [address] Hematocrit (Bld) [Volume fraction] 47.1 % Normal 42.0-52.0 On License [facility] ([place]) Comment on above: Performed By: #### A DIFF, CBC, BMP, GFR, TROPHS, MDW, PBNP, ANEU #### [place] [address] Hgb 16.6 G/dL Normal 14.0-18.0 On License [facility] ([place]) Comment on above: Performed By: #### A DIFF, CBC, BMP, GFR, TROPHS, MDW, PBNP, ANEU #### [place] [address] MCH (RBC) [Entitic mass] 33.8 pg High 27.0-31.2 On License [facility] ([place]) Comment on above: Performed By: #### A DIFF, CBC, BMP, GFR, TROPHS, MDW, PBNP, ANEU #### [place] [address] MCHC 35.2 G/dL Normal 31.8-35.4 On License [facility] ([place]) Comment on above: Performed By: #### A DIFF, CBC, BMP, GFR, TROPHS, MDW, PBNP, ANEU #### [address] [address] MCV (RBC) [Entitic vol] 95.9 fL High 80.0-94.0 On License [facility] ([place]) Comment on above: Performed By: #### A DIFF, CBC, BMP, GFR, TROPHS, MDW, PBNP, ANEU #### [address] [address] Platelet 202 10 3/mcL Normal 130-400 On License [facility] ([place]) Comment on above: Performed By: #### A DIFF, CBC, BMP, GFR, TROPHS, MDW, PBNP, ANEU #### [address] [address] Platelet mean volume (Bld) [Entitic vol] 8.1 fL Normal 7.4-10.4 On [facility] ([place]) Comment on above: Performed By: #### A DIFF, CBC, BMP, GFR, TROPHS, MDW, PBNP, ANEU #### [address] [address] RBC 4.91 10 6/mcL Normal 4.04-6.13 On License [facility] ([place]) Comment on above: Performed By: #### A DIFF, CBC, BMP, GFR, TROPHS, MDW, PBNP, ANEU #### [address] [address] WBC 6.8 10 3/mcL Normal 4.6-10.8 On License [facility] ([place]) Comment on above: Performed By: #### A DIFF, CBC, BMP, GFR, TROPHS, MDW, PBNP, ANEU #### [address] [address] CMPon 11-04-2023 Albumin Level 3.7 G/dL Normal 3.5-5.0 On License [facility] ([place]) Comment on above: Performed By: #### A DIFF, CBC, BMP, GFR, TROPHS, MDW, PBNP, ANEU #### [address] [address] Albumin/Globulin [Mass ratio] 1.1 {ratio} Normal 1.1-2.5 On License [facility] ([place]) Comment on above: Performed By: #### A DIFF, CBC, BMP, GFR, TROPHS, MDW, PBNP, ANEU #### [address] [address] ALP [Catalytic activity/Vol] 70 U/L Normal 40-135 On License Of [facility] ([place]) Comment on above: Performed By: #### A DIFF, CBC, BMP, GFR, TROPHS, MDW, PBNP, ANEU #### [address] [address] ALT [Catalytic activity/Vol] 42 U/L Normal 16-63 On License [facility] ([place]) Comment on above: Performed By: #### A DIFF, CBC, BMP, GFR, TROPHS, MDW, PBNP, ANEU #### [address] [address] AST [Catalytic activity/Vol] 24 U/L Normal 10-40 On License [facility] ([place]) Comment on above: Performed By: #### A DIFF, CBC, BMP, GFR, TROPHS, MDW, PBNP, ANEU #### [address] [address] Bili Total 0.6 mg/dL Normal 0.2-1.0 On License Of [facility] ([place]) Comment on above: Result Comment: Use of this assay is not recommended for patients undergoing treatment with eltrombopag due to the potential for falsely elevated results. Performed By: #### A DIFF, CBC, BMP, GFR, TROPHS, MDW, PBNP, ANEU #### [address] [address] BUN/Creatinine Ratio 17 ratio Normal 7-27 [facility] ([place]) Comment on above: Performed By: #### A DIFF, CBC, BMP, GFR, TROPHS, MDW, PBNP, ANEU #### [address] [address] Calcium [Mass/Vol] 9.5 mg/dL Normal 8.4-10.2 [facility] ([place]) Comment on above: Performed By: #### A DIFF, CBC, BMP, GFR, TROPHS, MDW, PBNP, ANEU #### [address] [address] Chloride [Moles/Vol] 104 mmol/L Normal 98-107 [facility] ([place]) Comment on above: Performed By: #### A DIFF, CBC, BMP, GFR, TROPHS, MDW, PBNP, ANEU #### [address] [address] CO2 [Moles/Vol] 26 mmol/L Normal 22-29 On License Of [facility] ([place]) Comment on above: Performed By: #### A DIFF, CBC, BMP, GFR, TROPHS, MDW, PBNP, ANEU #### [address] [address] Creatinine [Mass/Vol] 1.00 mg/dL Normal 0.70-1.30 [facility] ([place]) Comment on above: Performed By: #### A DIFF, CBC, BMP, GFR, TROPHS, MDW, PBNP, ANEU #### [address] [address] Electrolyte Balance 7.0 mEq/L Normal 4.0-15.0 [facility] ([place]) Comment on above: Performed By: #### A DIFF, CBC, BMP, GFR, TROPHS, MDW, PBNP, ANEU #### [address] [address] Globulin 3.4 G/dL Normal On License [facility] ([place]) Comment on above: Performed By: #### A DIFF, CBC, BMP, GFR, TROPHS, MDW, PBNP, ANEU #### [address] [address] Glucose [Mass/Vol] 152 mg/dL High 70-105 [facility] ([place]) Comment on above: Performed By: #### A DIFF, CBC, BMP, GFR, TROPHS, MDW, PBNP, ANEU #### [address] [address] Potassium [Moles/Vol] 4.2 mmol/L Normal 3.5-5.1 [facility] ([place]) Comment on above: Performed By: #### A DIFF, CBC, BMP, GFR, TROPHS, MDW, PBNP, ANEU #### [address] [address] Sodium [Moles/Vol] 137 mmol/L Normal 136-145 [facility] ([place]) Comment on above: Performed By: #### A DIFF, CBC, BMP, GFR, TROPHS, MDW, PBNP, ANEU #### [address] [address] Total Protein 7.1 G/dL Normal 6.4-8.2 On [facility] ([place]) Comment on above: Performed By: #### A DIFF, CBC, BMP, GFR, TROPHS, MDW, PBNP, ANEU #### [address] [address] Urea nitrogen [Mass/Vol] 17 mg/dL Normal 7-18 On License Of [facility] ([place]) Comment on above: Performed By: #### A DIFF, CBC, BMP, GFR, TROPHS, MDW, PBNP, ANEU #### [address] [address] ESRon 11-04-2023 Erythrocyte Sed Rate 17 mm/hr Normal 0-20 [facility] ([place]) Comment on above: Performed By: #### A DIFF, CBC, BMP, GFR, TROPHS, MDW, PBNP, ANEU #### [address] [address] LABORATORYOrdered By: SYSTEM SYSTEM on 11-04-2023 Albumin BCP dye [Mass/Vol] 3.7 G/dL Normal 3.5 - 5.0 G/dL AO ADM SS Albumin/Globulin [Mass ratio] 1.1 {ratio} Normal 1.1 - 2.5 ratio AO ADM SS ALP [Catalytic activity/Vol] 70 U/L Normal 40 - 135 U/L AO ADM SS ALT With P-5'-P [Catalytic activity/Vol] 42 U/L Normal 16 - 63 U/L AO ADM SS AST With P-5'-P [Catalytic activity/Vol] 24 U/L Normal 10 - 40 U/L AO ADM SS Basophil, Absolute 0.1 103/mcL Normal 0.0 - 0.2 10^3/mcL AO Workflow SS Basophils/100 WBC (Bld) 0.8 % Normal 0.0 - 2.5 % AO Workflow SS Bilirubin [Mass/Vol] 0.6 mg/dL Normal 0.2 - 1 .0 mg/dL AO ADM SS Comment on above: Interpretive Data: U se of this assay is not recommended for patients undergoing treatment with eltrombopag due to the potential for falsely elevated results. Calcium [Mass/Vol] 9.5 mg/dL Normal 8.4 - 10. 2 mg/dL AO ADM SS Chloride [Moles/Vol] 104 mmol/L Normal 98 - 10 7 mmol/L AO ADM SS CO2 [Moles/Vol] 26 mmol/L Normal 22 - 29 mmol/L AO ADM SS Creatinine [Mass/Vol] 1.00 mg/dL Normal 0.70 - 1.30 mg/dL AO ADM SS Electrolyte Balance 7.0 mEq/L Normal 4.0 - 15 .0 mEq/L AO ADM SS Eosinophil, Absolute 0.2 103/mcL Normal 0.0 - 0 .4 10^3/mcL AO Workflow SS Eosinophils/100 WBC (Bld) 2.8 % Normal 0.0 - 7.0 % AO Workflow SS Erythrocyte distribution width (RBC) [Ratio] 12.7 % Normal 11.5 - 14.5 % AO Workflow SS GFR/1.73 sq M.predicted among blacks MDRD (S/P/Bld) [Vol rate/Area] 93 ml/min/1.73sqm Invalid Interpretation Code AO Chemistry S Comment on above: Interpretive Data: GFR Population mean for , Non- Americans Ages 20-29 = 116 mL/min/1.73 sq.m. Ages 30-39 = 107 mL/min/1.73 sq.m. Ages 40-49 = 99 mL/min/1.73 sq.m. Ages 50-59 = 93 mL/min/1.73 sq.m. Ages 60-69 = 85 mL/min/1.73 sq.m. Ages 70+ = 75 mL/min/1.73 sq.m. Chronic Kidney Disease: Less than 60 mL/min/1.73 square meters End Stage Renal Disease: Less than 15 mL/min/1.73 square meters GFR/1.73 sq M.predicted among non-blacks MDRD (S/P/Bld) [Vol rate/Area] 76 ml/min/1.73sqm Invalid Interpretation Code AO Chemistry S Comment on above: Interpretive Data: GFR Population mean for , Non- Americans Ages 20-29 = 116 mL/min/1.73 sq.m. Ages 30-39 = 107 mL/min/1.73 sq.m. Ages 40-49 = 99 mL/min/1.73 sq.m. Ages 50-59 = 93 mL/min/1.73 sq.m. Ages 60-69 = 85 mL/min/1.73 sq.m. Ages 70+ = 75 mL/min/1.73 sq.m. Chronic Kidney Disease: Less than 60 mL/min/1.73 square meters End Stage Renal Disease: Less than 15 mL/min/1.73 square meters Globulin 3.4 G/dL Invalid Interpretation Code AO ADM SS Glucose [Mass/Vol] 152 mg/dL High 70 - 105 mg/dL AO ADM SS Hematocrit (Bld) [Volume fraction] 47.1 % Normal 42.0 - 52.0 % AO Workflow SS Hemoglobin (Bld) [Mass/Vol] 16.6 G/dL Normal 14.0 - 18.0 G/dL AO Workflow SS Lymphocyte, Absolute 2.2 103/mcL Normal 0.8 - 3 .9 10^3/mcL AO Workflow SS Lymphocytes/100 WBC (Bld) 31.7 % Normal 10.0 - 50.0 % AO Workflow SS MCH (RBC) [Entitic mass] 33.8 pg High 27.0 - 31.2 pg AO Workflow SS MCHC 35.2 G/dL Normal 31.8 - 35.4 G/dL AO Workflow SS MCV (RBC) [Entitic vol] 95.9 fL High 80.0 - 94.0 fL AO Workflow SS Monocyte, Absolute 0.7 103/mcL Normal 0.2 - 1.0 10^3/mcL AO Workflow SS Monocytes/100 WBC (Bld) 10.9 % Normal 1.7 - 13.0 % AO Workflow SS Neutrophil, Absolute 3.7 103/mcL Normal 2.9 - 6 .2 10^3/mcL AO Workflow SS Neutrophils/100 WBC (Bld) 53.8 % Normal 37.0 - 80.0 % AO Workflow SS Platelet mean volume (Bld) [Entitic vol] 8.1 fL Normal 7.4 - 10.4 fL AO Workflow SS Platelets (Bld) [#/Vol] 202 103/mcL Normal 130 - 400 10^3/mcL AO Workflow SS Potassium [Moles/Vol] 4.2 mmol/L Normal 3.5 - 5.1 mmol/L AO ADM SS Protein [Mass/Vol] 7.1 G/dL Normal 6.4 - 8.2 G/dL AO ADM SS RBC (Bld) [#/Vol] 4.91 106/mcL Normal 4.04 - 6.1 3 10^6/mcL AO Workflow SS Sodium [Moles/Vol] 137 mmol/L Normal 136 - 145 mmol/L AO ADM SS Testosterone [Mass/Vol] 316.34 ng/dL Normal 86.98 - 780.10 ng/dL AH ADM SS Comment on above: Interpretive Data: N ormal Reference Ranges for Females: Female Premenopause Ren89-437.01-47.94 ng/dL Female Postmenopause Hiy44-49<7.00-45.62 ng/dL TSH Qn 2.35 m[IU]/L Normal 0.36 - 3.74 mcIU/mL AO ADM SS Urea nitrogen [Mass/Vol] 17 mg/dL Normal 7 - 18 mg/dL AO ADM SS Urea nitrogen/Creatinine [Mass ratio] 17 ratio Normal 7 - 27 ratio AO ADM SS Uric Acid Lvl 5.3 mg/dL Normal 3.5 - 7.2 mg/dL AO ADM SS WBC (Bld) [#/Vol] 6.8 103/mcL Normal 4.6 - 10.8 10^3/mcL AO Workflow SS LABORATORYOrdered By: Mango Bradley on 11-04-2023 ESR Photometric method (Bld) [Velocity] 17 mm/hr Normal 0 - 20 mm/hr AO Man Heme SS TESTOon 11-04-2023 Testosterone Lvl 316.34 ng/dL Normal 86.98-780.10 [facility] ([place]) Comment on above: Result Comment: Norm al Reference Ranges for Females: Female Premenopause Age 21-60 9.01-47.94 ng/dL Female Postmenopause Age 45-89 <7.00-45.62 ng/dL Performed By: #### A DIFF, CBC, BMP, GFR, TROPHS, MDW, PBNP, ANEU #### [place] [address] TSHon 11-04-2023 TSH Qn 2.35 m[IU]/L Normal 0.36-3.74 On License Of [facility] ([place]) Comment on above: Performed By: #### A DIFF, CBC, BMP, GFR, TROPHS, MDW, PBNP, ANEU #### [place] [address] URICon 11-04-2023 Uric Acid Lvl 5.3 mg/dL Normal 3.5-7.2 On License Of [facility] ([place]) Comment on above: Performed By: #### A DIFF, CBC, BMP, GFR, TROPHS, MDW, PBNP, ANEU #### [address] [address] .Auto Diffon 10-09-2023 Basophil, Absolute 0.1 10 3/mcL Normal 0.0-0.2 [facility] ([place]) Comment on above: Performed By: #### A DIFF, CBC, BMP, GFR, TROPHS, MDW, PBNP, ANEU #### [place] [address] Basophils/100 WBC (Bld) 1.0 % Normal 0.0-2.5 On License Of [facility] ([place]) Comment on above: Performed By: #### A DIFF, CBC, BMP, GFR, TROPHS, MDW, PBNP, ANEU #### [place] [address] Eosinophil, Absolute 0.2 10 3/mcL Normal 0.0-0.4 [facility] ([place]) Comment on above: Performed By: #### A DIFF, CBC, BMP, GFR, TROPHS, MDW, PBNP, ANEU #### [place] [address] Eosinophils/100 WBC (Bld) 1.4 % Normal 0.0-7.0 On License Of [facility] ([place]) Comment on above: Performed By: #### A DIFF, CBC, BMP, GFR, TROPHS, MDW, PBNP, ANEU #### [address] [address] Lymphocyte, Absolute 2.4 10 3/mcL Normal 0.8-3.9 [facility] ([place]) Comment on above: Performed By: #### A DIFF, CBC, BMP, GFR, TROPHS, MDW, PBNP, ANEU #### [address] [address] Lymphocytes/100 WBC (Bld) 19.2 % Normal 10.0-50.0 On License Of [facility] ([place]) Comment on above: Performed By: #### A DIFF, CBC, BMP, GFR, TROPHS, MDW, PBNP, ANEU #### [address] [address] Monocyte, Absolute 1.2 10 3/mcL High 0.2-1.0 [facility] ([place]) Comment on above: Performed By: #### A DIFF, CBC, BMP, GFR, TROPHS, MDW, PBNP, ANEU #### [address] [address] Monocytes/100 WBC (Bld) 10.0 % Normal 1.7-13.0 On License Of [facility] ([place]) Comment on above: Performed By: #### A DIFF, CBC, BMP, GFR, TROPHS, MDW, PBNP, ANEU #### [address] [address] Neutrophils/100 WBC (Bld) 68.4 % Normal 37.0-80.0 On License Of [facility] ([place]) Comment on above: Performed By: #### A DIFF, CBC, BMP, GFR, TROPHS, MDW, PBNP, ANEU #### [address] [address] .GFRon 10-09-2023 GFR 77 ml/min/1.73sqm Normal On License Of [facility] ([place]) Comment on above: Result Comment: GFR Population mean for , Non- Americans Ages 20-29 = 116 mL/min/1.73 sq.m. Ages 30-39 = 107 mL/min/1.73 sq.m. Ages 40-49 = 99 mL/min/1.73 sq.m. Ages 50-59 = 93 mL/min/1.73 sq.m. Ages 60-69 = 85 mL/min/1.73 sq.m. Ages 70+ = 75 mL/min/1.73 sq.m. Chronic Kidney Disease: Less than 60 mL/min/1.73 square meters End Stage Renal Disease: Less than 15 mL/min/1.73 square meters Performed By: #### A DIFF, CBC, BMP, GFR, TROPHS, KEIKO, PBNP, ANEU #### [address] [address] GFR Non- 64 ml/min/1.73sqm Normal On License Of [facility] ([place]) Comment on above: Result Comment: GFR Population mean for , Non- Americans Ages 20-29 = 116 mL/min/1.73 sq.m. Ages 30-39 = 107 mL/min/1.73 sq.m. Ages 40-49 = 99 mL/min/1.73 sq.m. Ages 50-59 = 93 mL/min/1.73 sq.m. Ages 60-69 = 85 mL/min/1.73 sq.m. Ages 70+ = 75 mL/min/1.73 sq.m. Chronic Kidney Disease: Less than 60 mL/min/1.73 square meters End Stage Renal Disease: Less than 15 mL/min/1.73 square meters Performed By: #### A DIFF, CBC, BMP, GFR, TROPHDrew, KEIKO, PBNP, ANEU #### [address] [address] .Abimbola 10-09-2023 Monocyte Distribution Width Not performed Normal 0.00-20.00 On License Of [facility] ([place]) Comment on above: Performed By: #### A DIFF, CBC, BMP, GFR, TROPHS, KEIKO, PBNP, ANEU #### [address] [address] .NEUABSon 10-09-2023 Neutrophil, Absolute 8.5 10 3/mcL High 2.9-6.2 [facility] ([place]) Comment on above: Performed By: #### A DIFF, CBC, BMP, GFR, TROPHS, MDW, PBNP, ANEU #### [address] [address] BMPon 10-09-2023 BUN/Creatinine Ratio 18 ratio Normal 7-27 [facility] ([place]) Comment on above: Performed By: #### A DIFF, CBC, BMP, GFR, TROPHS, MDW, PBNP, ANEU #### [address] [address] Calcium [Mass/Vol] 9.3 mg/dL Normal 8.4-10.2 [facility]) Comment on above: Performed By: #### A DIFF, CBC, BMP, GFR, TROPHS, MDW, PBNP, ANEU #### [address] [address] Chloride [Moles/Vol] 103 mmol/L Normal 98-107 [facility]) Comment on above: Performed By: #### A DIFF, CBC, BMP, GFR, TROPHS, MDW, PBNP, ANEU #### [address] [address] CO2 [Moles/Vol] 24 mmol/L Normal 22-29 On License Of [facility] ([place]) Comment on above: Performed By: #### A DIFF, CBC, BMP, GFR, TROPHS, MDW, PBNP, ANEU #### [address] [address] Creatinine [Mass/Vol] 1.17 mg/dL Normal 0.70-1.30 [facility] ([place]) Comment on above: Performed By: #### A DIFF, CBC, BMP, GFR, TROPHS, MDW, PBNP, ANEU #### [address] [address] Electrolyte Balance 12.0 mEq/L Normal 4.0-15.0 [facility] ([place]) Comment on above: Performed By: #### A DIFF, CBC, BMP, GFR, TROPHS, MDW, PBNP, ANEU #### [address] [address] Glucose [Mass/Vol] 150 mg/dL High 70-105 [facility] ([place]) Comment on above: Performed By: #### A DIFF, CBC, BMP, GFR, TROPHS, MDW, PBNP, ANEU #### [address] [address] Potassium [Moles/Vol] 4.3 mmol/L Normal 3.5-5.1 [facility] ([place]) Comment on above: Performed By: #### A DIFF, CBC, BMP, GFR, TROPHS, MDW, PBNP, ANEU #### [address] [address] Sodium [Moles/Vol] 139 mmol/L Normal 136-145 [facility] ([place]) Comment on above: Performed By: #### A DIFF, CBC, BMP, GFR, TROPHS, MDW, PBNP, ANEU #### [address] [address] Urea nitrogen [Mass/Vol] 21 mg/dL High 7-18 On License Of [facility] ([place]) Comment on above: Performed By: #### A DIFF, CBC, BMP, GFR, TROPHS, MDW, PBNP, ANEU #### [address] [address] CBCon 10-09-2023 Erythrocyte distribution width (RBC) [Ratio] 13.1 % Normal 11.5-14.5 On License Of [facility] ([place]) Comment on above: Performed By: #### A DIFF, CBC, BMP, GFR, TROPHS, MDW, PBNP, ANEU #### [address] [address] Hematocrit (Bld) [Volume fraction] 48.7 % Normal 42.0-52.0 On License Of [facility] ([place]) Comment on above: Performed By: #### A DIFF, CBC, BMP, GFR, TROPHS, MDW, PBNP, ANEU #### [address] [address] Hgb 17.0 G/dL Normal 14.0-18.0 On License Of [facility] ([place]) Comment on above: Performed By: #### A DIFF, CBC, BMP, GFR, TROPHS, MDW, PBNP, ANEU #### [address] [address] MCH (RBC) [Entitic mass] 33.5 pg High 27.0-31.2 On License Of [facility] ([place]) Comment on above: Performed By: #### A DIFF, CBC, BMP, GFR, TROPHS, MDW, PBNP, ANEU #### [place] [address] MCHC 34.8 G/dL Normal 31.8-35.4 On License Of [facility] [place]) Comment on above: Performed By: #### A DIFF, CBC, BMP, GFR, TROPHS, MDW, PBNP, ANEU #### [address] [address] MCV (RBC) [Entitic vol] 96.1 fL High 80.0-94.0 On License Of [facility] ([place]) Comment on above: Performed By: #### A DIFF, CBC, BMP, GFR, TROPHS, MDW, PBNP, ANEU #### [address] [address] Platelet 187 10 3/mcL Normal 130-400 On License Of [facility] ([place]) Comment on above: Performed By: #### A DIFF, CBC, BMP, GFR, TROPHS, MDW, PBNP, ANEU #### [address] [address] Platelet mean volume (Bld) [Entitic vol] 7.7 fL Normal 7.4-10.4 On License Of [facility] [place]) Comment on above: Performed By: #### A DIFF, CBC, BMP, GFR, TROPHS, MDW, PBNP, ANEU #### [place] [id number] RBC 5.07 10 6/mcL Normal 4.04-6.13 On License Of [facility] ([place]) Comment on above: Performed By: #### A DIFF, CBC, BMP, GFR, TROPHDrew, KEIKO, JIHAN, ANEU #### [place] [address] [place], [place] [address] WBC 12.4 10 3/mcL High 4.6-10.8 On License Of [facility] ([place]) Comment on above: Performed By: #### A DIFF, CBC, BMP, GFR, TROPHS, W, PBNP, ANEU #### [place] [address] [place], [place] [address] LABORATORYOrdered By: SYSTEM SYSTEM on 10-09-2023 Basophil, Absolute 0.1 103/mcL Normal 0.0 - 0.2 10^3/mcL AO Workflow SS Basophils/100 WBC (Bld) 1.0 % Normal 0.0 - 2.5 % AO Workflow SS Calcium [Mass/Vol] 9.3 mg/dL Normal 8.4 - 10. 2 mg/dL AO ADM SS Chloride [Moles/Vol] 103 mmol/L Normal 98 - 10 7 mmol/L AO ADM SS CO2 [Moles/Vol] 24 mmol/L Normal 22 - 29 mmol/L AO ADM SS Creatinine [Mass/Vol] 1.17 mg/dL Normal 0.70 - 1.30 mg/dL AO ADM SS Electrolyte Balance 12.0 mEq/L Normal 4.0 - 15 .0 mEq/L AO ADM SS Eosinophil, Absolute 0.2 103/mcL Normal 0.0 - 0 .4 10^3/mcL AO Workflow SS Eosinophils/100 WBC (Bld) 1.4 % Normal 0.0 - 7.0 % AO Workflow SS Erythrocyte distribution width (RBC) [Ratio] 13.1 % Normal 11.5 - 14.5 % AO Workflow SS GFR/1.73 sq M.predicted among blacks MDRD (S/P/Bld) [Vol rate/Area] 77 ml/min/1.73sqm Invalid Interpretation Code AO Chemistry S Comment on above: Interpretive Data: GFR Population mean for , Non- Americans Ages 20-29 = 116 mL/min/1.73 sq.m. Ages 30-39 = 107 mL/min/1.73 sq.m. Ages 40-49 = 99 mL/min/1.73 sq.m. Ages 50-59 = 93 mL/min/1.73 sq.m. Ages 60-69 = 85 mL/min/1.73 sq.m. Ages 70+ = 75 mL/min/1.73 sq.m. Chronic Kidney Disease: Less than 60 mL/min/1.73 square meters End Stage Renal Disease: Less than 15 mL/min/1.73 square meters GFR/1.73 sq M.predicted among non-blacks MDRD (S/P/Bld) [Vol rate/Area] 64 ml/min/1.73sqm Invalid Interpretation Code AO Chemistry S Comment on above: Interpretive Data: GFR Population mean for , Non- Americans Ages 20-29 = 116 mL/min/1.73 sq.m. Ages 30-39 = 107 mL/min/1.73 sq.m. Ages 40-49 = 99 mL/min/1.73 sq.m. Ages 50-59 = 93 mL/min/1.73 sq.m. Ages 60-69 = 85 mL/min/1.73 sq.m. Ages 70+ = 75 mL/min/1.73 sq.m. Chronic Kidney Disease: Less than 60 mL/min/1.73 square meters End Stage Renal Disease: Less than 15 mL/min/1.73 square meters Glucose [Mass/Vol] 150 mg/dL High 70 - 105 mg/dL AO ADM SS Hematocrit (Bld) [Volume fraction] 48.7 % Normal 42.0 - 52.0 % AO Workflow SS Hemoglobin (Bld) [Mass/Vol] 17.0 G/dL Normal 14.0 - 18.0 G/dL AO Workflow SS Lymphocyte, Absolute 2.4 103/mcL Normal 0.8 - 3 .9 10^3/mcL AO Workflow SS Lymphocytes/100 WBC (Bld) 19.2 % Normal 10.0 - 50.0 % AO Workflow SS MCH (RBC) [Entitic mass] 33.5 pg High 27.0 - 31.2 pg AO Workflow SS MCHC 34.8 G/dL Normal 31.8 - 35.4 G/dL AO Workflow SS MCV (RBC) [Entitic vol] 96.1 fL High 80.0 - 94.0 fL AO Workflow SS Monocyte, Absolute 1.2 103/mcL High 0.2 - 1.0 10^3/mcL AO Workflow SS Monocytes/100 WBC (Bld) 10.0 % Normal 1.7 - 13.0 % AO Workflow SS Natriuretic peptide.B prohormone N-Terminal [Mass/Vol] 33 pg/mL Normal 0 - 125 pg/mL AO ADM SS Comment on above: Interpretive Data: N T-proBNP results of less than 300 pg/mL effectively rules out acute congestive heart failure with 99% negative predictive value. Neutrophil, Absolute 8.5 103/mcL High 2.9 - 6 .2 10^3/mcL AO Workflow SS Neutrophils/100 WBC (Bld) 68.4 % Normal 37.0 - 80.0 % AO Workflow SS Platelet mean volume (Bld) [Entitic vol] 7.7 fL Normal 7.4 - 10.4 fL AO Workflow SS Platelets (Bld) [#/Vol] 187 103/mcL Normal 130 - 400 10^3/mcL AO Workflow SS Potassium [Moles/Vol] 4.3 mmol/L Normal 3.5 - 5.1 mmol/L AO ADM SS RBC (Bld) [#/Vol] 5.07 106/mcL Normal 4.04 - 6.1 3 10^6/mcL AO Workflow SS Sodium [Moles/Vol] 139 mmol/L Normal 136 - 145 mmol/L AO ADM SS Troponin I.cardiac DL <= 0.01 ng/mL [Mass/Vol] 6.4 ng/L Normal 0.0 - 76.2 ng/L AO ADM SS Urea nitrogen [Mass/Vol] 21 mg/dL High 7 - 18 mg/dL AO ADM SS Urea nitrogen/Creatinine [Mass ratio] 18 ratio Normal 7 - 27 ratio AO ADM SS WBC (Bld) [#/Vol] 12.4 103/mcL High 4.6 - 10.8 10^3/mcL AO Workflow SS LABORATORYOrdered By: Dex Cote on 10-09-2023 Monocyte distribution width Auto (Bld) [Entitic vol] Not Performed (10/09/23 3:34 PM) Normal 0.00 - 20.00 AO Hematology S PBNPon 10-09-2023 Natriuretic peptide B (Bld) [Mass/Vol] 33 pg/mL Normal 0-125 On License Of [facility] ([place]) Comment on above: Result Comment: NT-p roBNP results of less than 300 pg/mL effectively rules out acute congestive heart failure with 99% negative predictive value. Performed By: #### A DIFF, CBC, BMP, GFR, KEIKO POSADA, PBNP, ANEU #### [place] [address] TROPHSon 10-09-2023 Troponin I High Sensitivity 6.4 ng/L Normal 0.0-76.2 On License Of [facility] ([place]) Comment on above: Performed By: #### A DIFF, CBC, BMP, GFR, SWETHA, KEIKO, PBNP, ANEU #### [place] [address] XR CHEST 1 VIEWon 10-09-2023 XR CHEST 1 VIEW ORIGINAL EXAMINATION: ONE XRAY VIEW OF THE CHEST10/09/2023 4:19 pm COMPARISON: 01/14/2021 HISTORY: ORDERING SYSTEM PROVIDED HISTORY: Reason for Exam: chest pain FINDINGS: Median sternotomy wires. The cardiomediastinal silhouette is within normal limits given portable technique. No significant pulmonary vascular congestion. Mild hazy appearance of the bibasilar lungs likely secondary to artifact from overlying tissue. Otherwise no focal consolidation, pneumothorax or large volume pleural effusion. No acute osseous abnormality. Degenerative changes of the spine. IMPRESSION: No acute radiographic findings. Preliminary Report was Dictated by a Resident I have personally reviewed all of the images of this examination and agree with the resident findings and interpretation. Interpreted by: Chang Joseph MD Preliminary Report By: Camille Sigala Electronically signed By Chang Joseph MD Dictated Date: 10/09/2023 4:23:00 PM Prelim Date: 10/09/2023 4:26:17 PM Sign Date: 10/09/2023 9:59:57 PM Ordering Provider: MILTON Saavedra On License Of [facility] ([place]) .Auto Diffon 05-02-2023 Basophil, Absolute 0.1 10 3/mcL Normal 0.0-0.2 [facility] ([place]) Comment on above: Performed By: #### A DIFF, CBC, BMP, GFR, KEIKO POSADA, PBNP, ANEU #### [place] [address] Basophils/100 WBC (Bld) 0.9 % Normal 0.0-2.5 On License Of [facility] ([place]) Comment on above: Performed By: #### A DIFF, CBC, BMP, GFR, TROPHS, MDW, PBNP, ANEU #### [address] [address] Eosinophil, Absolute 0.1 10 3/mcL Normal 0.0-0.4 [facility] ([place]) Comment on above: Performed By: #### A DIFF, CBC, BMP, GFR, TROPHS, MDW, PBNP, ANEU #### [address] [address] Eosinophils/100 WBC (Bld) 2.0 % Normal 0.0-7.0 On License Of [facility] ([place]) Comment on above: Performed By: #### A DIFF, CBC, BMP, GFR, TROPHS, MDW, PBNP, ANEU #### [address] [address] Lymphocyte, Absolute 1.7 10 3/mcL Normal 0.8-3.9 [facility] ([place]) Comment on above: Performed By: #### A DIFF, CBC, BMP, GFR, TROPHS, MDW, PBNP, ANEU #### [address] [address] Lymphocytes/100 WBC (Bld) 24.0 % Normal 10.0-50.0 On License Of [facility] ([place]) Comment on above: Performed By: #### A DIFF, CBC, BMP, GFR, TROPHS, MDW, PBNP, ANEU #### [address] [address] Monocyte, Absolute 0.6 10 3/mcL Normal 0.2-1.0 [facility] ([place]) Comment on above: Performed By: #### A DIFF, CBC, BMP, GFR, TROPHS, MDW, PBNP, ANEU #### [address] [address] Monocytes/100 WBC (Bld) 9.0 % Normal 1.7-13.0 On License Of [facility] ([place]) Comment on above: Performed By: #### A DIFF, CBC, BMP, GFR, TROPHS, MDW, PBNP, ANEU #### [address] [address] Neutrophils/100 WBC (Bld) 64.1 % Normal 37.0-80.0 On License Of [facility] ([place]) Comment on above: Performed By: #### A DIFF, CBC, BMP, GFR, TROPHS, MDW, PBNP, ANEU #### [address] [address] .GFRon 05-02-2023 GFR 89 ml/min/1.73sqm Normal On License Of [facility] ([place]) Comment on above: Result Comment: GFR Population mean for , Non- Americans Ages 20-29 = 116 mL/min/1.73 sq.m. Ages 30-39 = 107 mL/min/1.73 sq.m. Ages 40-49 = 99 mL/min/1.73 sq.m. Ages 50-59 = 93 mL/min/1.73 sq.m. Ages 60-69 = 85 mL/min/1.73 sq.m. Ages 70+ = 75 mL/min/1.73 sq.m. Chronic Kidney Disease: Less than 60 mL/min/1.73 square meters End Stage Renal Disease: Less than 15 mL/min/1.73 square meters Performed By: #### A DIFF, CBC, BMP, GFR, TROPHS, MDW, PBNP, ANEU #### [address] [address] GFR Non- 73 ml/min/1.73sqm Normal On License Of [facility] ([place]) Comment on above: Result Comment: GFR Population mean for , Non- Americans Ages 20-29 = 116 mL/min/1.73 sq.m. Ages 30-39 = 107 mL/min/1.73 sq.m. Ages 40-49 = 99 mL/min/1.73 sq.m. Ages 50-59 = 93 mL/min/1.73 sq.m. Ages 60-69 = 85 mL/min/1.73 sq.m. Ages 70+ = 75 mL/min/1.73 sq.m. Chronic Kidney Disease: Less than 60 mL/min/1.73 square meters End Stage Renal Disease: Less than 15 mL/min/1.73 square meters Performed By: #### A DIFF, CBC, BMP, GFR, TROPHS, MDW, PBNP, ANEU #### [address] [address] .NEUABSon 05-02-2023 Neutrophil, Absolute 4.4 10 3/mcL Normal 2.9-6.2 [facility] ([place]) Comment on above: Performed By: #### A DIFF, CBC, BMP, GFR, TROPHS, MDW, PBNP, ANEU #### [place] [address] CBCon 05-02-2023 Erythrocyte distribution width (RBC) [Ratio] 12.3 % Normal 11.5-14.5 On License Of [facility] ([place]) Comment on above: Performed By: #### A DIFF, CBC, BMP, GFR, TROPHS, MDW, PBNP, ANEU #### [place] [address] Hematocrit (Bld) [Volume fraction] 48.4 % Normal 42.0-52.0 On License Of [facility] [place]) Comment on above: Performed By: #### A DIFF, CBC, BMP, GFR, TROPHS, MDW, PBNP, ANEU #### [place] [address] Hgb 17.0 G/dL Normal 14.0-18.0 On License Of [facility] ([place]) Comment on above: Performed By: #### A DIFF, CBC, BMP, GFR, TROPHS, MDW, PBNP, ANEU #### [place] [address] MCH (RBC) [Entitic mass] 33.5 pg High 27.0-31.2 On License Of [facility] ([place]) Comment on above: Performed By: #### A DIFF, CBC, BMP, GFR, TROPHS, MDW, PBNP, ANEU #### [place] [address] MCHC 35.2 G/dL Normal 31.8-35.4 On License Of [facility] ([place]) Comment on above: Performed By: #### A DIFF, CBC, BMP, GFR, TROPHS, MDW, PBNP, ANEU #### [address] [address] MCV (RBC) [Entitic vol] 95.3 fL High 80.0-94.0 On License Of [facility] ([place]) Comment on above: Performed By: #### A DIFF, CBC, BMP, GFR, TROPHS, MDW, PBNP, ANEU #### [address] [address] Platelet 210 10 3/mcL Normal 130-400 On License Of [facility] ([place]) Comment on above: Performed By: #### A DIFF, CBC, BMP, GFR, TROPHS, MDW, PBNP, ANEU #### [address] [address] Platelet mean volume (Bld) [Entitic vol] 7.9 fL Normal 7.4-10.4 On License Of [facility] ([place]) Comment on above: Performed By: #### A DIFF, CBC, BMP, GFR, TROPHS, MDW, PBNP, ANEU #### [address] [address] RBC 5.08 10 6/mcL Normal 4.04-6.13 On License Of [facility] ([place] Comment on above: Performed By: #### A DIFF, CBC, BMP, GFR, TROPHS, MDW, PBNP, ANEU #### [address] [address] WBC 6.9 10 3/mcL Normal 4.6-10.8 On License Of [facility] ([place]) Comment on above: Performed By: #### A DIFF, CBC, BMP, GFR, TROPHS, MDW, PBNP, ANEU #### [address] [address] CMPon 05-02-2023 Albumin Level 3.9 G/dL Normal 3.5-5.0 On License Of [facility] ([place]) Comment on above: Performed By: #### A DIFF, CBC, BMP, GFR, TROPHS, MDW, PBNP, ANEU #### [address] [address] Albumin/Globulin [Mass ratio] 1.1 {ratio} Normal 1.1-2.5 On License Of [facility] ([place]) Comment on above: Performed By: #### A DIFF, CBC, BMP, GFR, TROPHS, MDW, PBNP, ANEU #### [address] [address] ALP [Catalytic activity/Vol] 69 U/L Normal 40-135 On License Of [facility] ([place]) Comment on above: Performed By: #### A DIFF, CBC, BMP, GFR, TROPHS, MDW, PBNP, ANEU #### [address] [address] ALT [Catalytic activity/Vol] 46 U/L Normal 16-63 On License Of [facility] ([place]) Comment on above: Performed By: #### A DIFF, CBC, BMP, GFR, TROPHS, MDW, PBNP, ANEU #### [address] [address] AST [Catalytic activity/Vol] 26 U/L Normal 10-40 On License Of [facility] ([place]) Comment on above: Performed By: #### A DIFF, CBC, BMP, GFR, TROPHS, MDW, PBNP, ANEU #### [address] [address] Bili Total 0.8 mg/dL Normal 0.2-1.0 On License Of [facility] ([place]) Comment on above: Result Comment: Use of this assay is not recommended for patients undergoing treatment with eltrombopag due to the potential for falsely elevated results. Performed By: #### A DIFF, CBC, BMP, GFR, TROPHS, MDW, PBNP, ANEU #### [address] [address] BUN/Creatinine Ratio 16 ratio Normal 7-27 [facility] ([place]) Comment on above: Performed By: #### A DIFF, CBC, BMP, GFR, TROPHS, MDW, PBNP, ANEU #### [address] [address] Calcium [Mass/Vol] 8.8 mg/dL Normal 8.4-10.2 [facility] ([place]) Comment on above: Performed By: #### A DIFF, CBC, BMP, GFR, TROPHS, MDW, PBNP, ANEU #### [address] [address] Chloride [Moles/Vol] 105 mmol/L Normal 98-107 [facility] ([place] Comment on above: Performed By: #### A DIFF, CBC, BMP, GFR, TROPHS, MDW, PBNP, ANEU #### [address] [address] CO2 [Moles/Vol] 22 mmol/L Normal 22-29 On License Of [facility] ([place]) Comment on above: Performed By: #### A DIFF, CBC, BMP, GFR, TROPHS, MDW, PBNP, ANEU #### [address] [address] Creatinine [Mass/Vol] 1.04 mg/dL Normal 0.70-1.30 [facility] ([place]) Comment on above: Performed By: #### A DIFF, CBC, BMP, GFR, TROPHS, MDW, PBNP, ANEU #### [address] [address] Electrolyte Balance 9.0 mEq/L Normal 4.0-15.0 [facility] ([place]) Comment on above: Performed By: #### A DIFF, CBC, BMP, GFR, TROPHS, MDW, PBNP, ANEU #### [address] [address] Globulin 3.4 G/dL Normal On License Of [facility] ([place]) Comment on above: Performed By: #### A DIFF, CBC, BMP, GFR, TROPHS, MDW, PBNP, ANEU #### [address] [address] Glucose [Mass/Vol] 179 mg/dL High 70-105 [facility] ([place]) Comment on above: Performed By: #### A DIFF, CBC, BMP, GFR, TROPHS, MDW, PBNP, ANEU #### [address] [address] Potassium [Moles/Vol] 4.1 mmol/L Normal 3.5-5.1 [facility] ([place]) Comment on above: Performed By: #### A DIFF, CBC, BMP, GFR, TROPHS, MDW, PBNP, ANEU #### [address] [address] Sodium [Moles/Vol] 136 mmol/L Normal 136-145 [facility] ([place]) Comment on above: Performed By: #### A DIFF, CBC, BMP, GFR, TROPHS, MDW, PBNP, ANEU #### [address] [address] Total Protein 7.3 G/dL Normal 6.4-8.2 On License Of [facility] ([place]) Comment on above: Performed By: #### A DIFF, CBC, BMP, GFR, TROPHS, MDW, PBNP, ANEU #### [address] [address] Urea nitrogen [Mass/Vol] 17 mg/dL Normal 7-18 On License Of [facility] ([place]) Comment on above: Performed By: #### A DIFF, CBC, BMP, GFR, TROPHS, MDW, PBNP, ANEU #### [address] [address] LABORATORYOrdered By: SYSTEM SYSTEM on 05-02-2023 Albumin BCP dye [Mass/Vol] 3.9 G/dL Invalid Interpretation Code 3.5 - 5.0 G/dL AO ADM SS Albumin/Globulin [Mass ratio] 1.1 {ratio} Invalid Interpretation Code 1.1 - 2.5 ratio AO ADM SS ALP [Catalytic activity/Vol] 69 U/L Invalid Interpretation Code 40 - 135 U/L AO ADM SS ALT With P-5'-P [Catalytic activity/Vol] 46 U/L Invalid Interpretation Code 16 - 63 U/L AO ADM SS AST With P-5'-P [Catalytic activity/Vol] 26 U/L Invalid Interpretation Code 10 - 40 U/L AO ADM SS Basophil, Absolute 0.1 103/mcL Invalid Interpretation Code 0.0 - 0.2 10^3/mcL AO Workflow SS Basophils/100 WBC (Bld) 0.9 % Invalid Interpretation Code 0.0 - 2.5 % AO Workflow SS Bilirubin [Mass/Vol] 0.8 mg/dL Invalid Interpretation Code 0.2 - 1.0 mg/dL AO ADM SS Comment on above: Interpretive Data: U se of this assay is not recommended for patients undergoing treatment with eltrombopag due to the potential for falsely elevated results. Calcium [Mass/Vol] 8.8 mg/dL Invalid Interpretation Code 8.4 - 10.2 mg/dL AO ADM SS Chloride [Moles/Vol] 105 mmol/L Invalid Interpretation Code 98 - 107 mmol/L AO ADM SS CO2 [Moles/Vol] 22 mmol/L Invalid Interpretation Code 22 - 29 mmol/L AO ADM SS Creatinine [Mass/Vol] 1.04 mg/dL Invalid Interpretation Code 0.70 - 1.30 mg/dL AO ADM SS Electrolyte Balance 9.0 mEq/L Invalid Interpretation Code 4.0 - 15.0 mEq/L AO ADM SS Eosinophil, Absolute 0.1 103/mcL Invalid Interpretation Code 0.0 - 0.4 10^3/mcL AO Workflow SS Eosinophils/100 WBC (Bld) 2.0 % Invalid Interpretation Code 0.0 - 7.0 % AO Workflow SS Erythrocyte distribution width (RBC) [Ratio] 12.3 % Invalid Interpretation Code 11.5 - 14.5 % AO Workflow SS GFR/1.73 sq M.predicted among blacks MDRD (S/P/Bld) [Vol rate/Area] 89 ml/min/1.73sqm Invalid Interpretation Code AO Chemistry S Comment on above: Interpretive Data: GFR Population mean for , Non- Americans Ages 20-29 = 116 mL/min/1.73 sq.m. Ages 30-39 = 107 mL/min/1.73 sq.m. Ages 40-49 = 99 mL/min/1.73 sq.m. Ages 50-59 = 93 mL/min/1.73 sq.m. Ages 60-69 = 85 mL/min/1.73 sq.m. Ages 70+ = 75 mL/min/1.73 sq.m. Chronic Kidney Disease: Less than 60 mL/min/1.73 square meters End Stage Renal Disease: Less than 15 mL/min/1.73 square meters GFR/1.73 sq M.predicted among non-blacks MDRD (S/P/Bld) [Vol rate/Area] 73 ml/min/1.73sqm Invalid Interpretation Code AO Chemistry S Comment on above: Interpretive Data: GFR Population mean for , Non- Americans Ages 20-29 = 116 mL/min/1.73 sq.m. Ages 30-39 = 107 mL/min/1.73 sq.m. Ages 40-49 = 99 mL/min/1.73 sq.m. Ages 50-59 = 93 mL/min/1.73 sq.m. Ages 60-69 = 85 mL/min/1.73 sq.m. Ages 70+ = 75 mL/min/1.73 sq.m. Chronic Kidney Disease: Less than 60 mL/min/1.73 square meters End Stage Renal Disease: Less than 15 mL/min/1.73 square meters Globulin 3.4 G/dL Invalid Interpretation Code AO ADM SS Glucose [Mass/Vol] 179 mg/dL Invalid Interpretation Code 70 - 105 mg/dL AO ADM SS Hematocrit (Bld) [Volume fraction] 48.4 % Invalid Interpretation Code 42.0 - 52.0 % AO Workflow SS Hemoglobin (Bld) [Mass/Vol] 17.0 G/dL Invalid Interpretation Code 14.0 - 18.0 G/dL AO Workflow SS Lymphocyte, Absolute 1.7 103/mcL Invalid Interpretation Code 0.8 - 3.9 10^3/mcL AO Workflow SS Lymphocytes/100 WBC (Bld) 24.0 % Invalid Interpretation Code 10.0 - 50.0 % AO Workflow SS MCH (RBC) [Entitic mass] 33.5 pg Invalid Interpretation Code 27.0 - 31.2 pg AO Workflow SS MCHC 35.2 G/dL Invalid Interpretation Code 31.8 - 35.4 G/dL AO Workflow SS MCV (RBC) [Entitic vol] 95.3 fL Invalid Interpretation Code 80.0 - 94.0 fL AO Workflow SS Monocyte, Absolute 0.6 103/mcL Invalid Interpretation Code 0.2 - 1.0 10^3/mcL AO Workflow SS Monocytes/100 WBC (Bld) 9.0 % Invalid Interpretation Code 1.7 - 13.0 % AO Workflow SS Neutrophil, Absolute 4.4 103/mcL Invalid Interpretation Code 2.9 - 6.2 10^3/mcL AO Workflow SS Neutrophils/100 WBC (Bld) 64.1 % Invalid Interpretation Code 37.0 - 80.0 % AO Workflow SS Platelet mean volume (Bld) [Entitic vol] 7.9 fL Invalid Interpretation Code 7.4 - 10.4 fL AO Workflow SS Platelets (Bld) [#/Vol] 210 103/mcL Invalid Interpretation Code 130 - 400 10^3/mcL AO Workflow SS Potassium [Moles/Vol] 4.1 mmol/L Invalid Interpretation Code 3.5 - 5.1 mmol/L AO ADM SS Prostate specific Ag [Mass/Vol] 0.34 ng/mL Invalid Interpretation Code 0.00 - 4.00 ng/mL AO ADM SS Protein [Mass/Vol] 7.3 G/dL Invalid Interpretation Code 6.4 - 8.2 G/dL AO ADM SS RBC (Bld) [#/Vol] 5.08 106/mcL Invalid Interpretation Code 4.04 - 6.13 10^6/mcL AO Workflow SS Sodium [Moles/Vol] 136 mmol/L Invalid Interpretation Code 136 - 145 mmol/L AO ADM SS Testosterone [Mass/Vol] 259.12 ng/dL Invalid Interpretation Code 86.98 - 780.10 ng/dL AH ADM SS Comment on above: Interpretive Data: N ormal Reference Ranges for Females: Female Premenopause Lfa45-991.01-47.94 ng/dL Female Postmenopause Upt93-95<7.00-45.62 ng/dL Urea nitrogen [Mass/Vol] 17 mg/dL Invalid Interpretation Code 7 - 18 mg/dL AO ADM SS Urea nitrogen/Creatinine [Mass ratio] 16 ratio Invalid Interpretation Code 7 - 27 ratio AO ADM SS WBC (Bld) [#/Vol] 6.9 103/mcL Invalid Interpretation Code 4.6 - 10.8 10^3/mcL AO Workflow SS LABORATORYOrdered By: Mango Bradley on 05-02-2023 Cholesterol [Mass/Vol] 172 mg/dL Invalid Interpretation Code 0 - 200 mg/dL AO ADM SS Comment on above: Interpretive Data: C holesterol Reference Interval: Less than 200 Desirable 200-239 Borderline high risk 240 and above High risk Cholesterol in HDL [Mass/Vol] 35 mg/dL Invalid Interpretation Code 40 - 60 mg/dL AO ADM SS Cholesterol in LDL [Mass/Vol] 105 mg/dL Invalid Interpretation Code 0 - 130 mg/dL AO ADM SS Triglyceride [Mass/Vol] 161 mg/dL Invalid Interpretation Code 0 - 150 mg/dL AO ADM SS Comment on above: Interpretive Data: T riglyceride Reference Interval: Less than 150 Normal 150-199 Borderline high risk 200-499 High risk 500 or higher Very high risk LIPIDon 05-02-2023 Cholesterol [Mass/Vol] 172 mg/dL Normal 0-200 On License Of [facility] ([place]) Comment on above: Result Comment: Chol esterol Reference Interval: Less than 200 Desirable 200-239 Borderline high risk 240 and above High risk Performed By: #### A DIFF, CBC, BMP, GFR, SWETHA, KEIKO, PBNP, ANEU #### [address] [address] Cholesterol in HDL [Mass/Vol] 35 mg/dL Low 40-60 On License Of [facility] ([place]) Comment on above: Performed By: #### A DIFF, CBC, BMP, GFR, SWETHA, W, PBNP, ANEU #### [address] [address] Cholesterol in LDL [Mass/Vol] 105 mg/dL Normal 0-130 On License Of [facility] ([place]) Comment on above: Performed By: #### A DIFF, CBC, BMP, GFR, SWETHA, W, PBNP, ANEU #### [address] [address] Triglyceride [Mass/Vol] 161 mg/dL High 0-150 On License Of [facility] ([place]) Comment on above: Result Comment: Trig lyceride Reference Interval: Less than 150 Normal 150-199 Borderline high risk 200-499 High risk 500 or higher Very high risk Performed By: #### A DIFF, CBC, BMP, GFR, SWETHA, KEIKO, PBNP, ANEU #### [address] [address] PSAon 05-02-2023 Prostate Specific Antigen 0.34 ng/mL Normal 0.00-4.00 On License Of [facility] ([place]) Comment on above: Performed By: #### T ANNEMARIEO #### [address], [place] [address] #### CMP, ANEU, PSA, ADIFF, GFR, LIPID, CBC #### [address] [place], [place] [address] TESTOon 05-02-2023 Testosterone Lvl 259.12 ng/dL Normal 86.98-780.10 [facility] ([place]) Comment on above: Result Comment: Norm al Reference Ranges for Females: Female Premenopause Age 21-60 9.01-47.94 ng/dL Female Postmenopause Age 45-89 <7.00-45.62 ng/dL Performed By: #### A DIFF, CBC, BMP, GFR, TROPHS, MDW, PBNP, ANEU #### [address] [place], [place] [address] Vital Signs Date Time Vital Sign Value Performing Clinician Facility 03-03-2025 09:27-0400 Body height 182.[address] Kevin Booker DO Work Phone: [facility] 03-03-2025 09:27-0400 Body mass index (BMI) [Ratio] 39.3 kg/m2 Dr. Kevin Booker DO Work Phone: [facility] 03-03-2025 09:27-0400 Body temperature 99.6 [degF] Dr. Kevin Booker DO Work Phone: [facility] 03-03-2025 09:27-0400 Body weight 131.[address] Kevin Booker DO Work Phone: [facility] 03-03-2025 09:27-0400 Diastolic blood pressure 78 mm[Hg] Dr. Kevin Booker DO Work Phone: [facility] 03-03-2025 09:27-0400 Heart rate 89 /min Dr. Kevin Booker DO Work Phone: [facility] 03-03-2025 09:27-0400 Respiratory rate 16 /min Dr. Kevin Booker DO Work Phone: [facility] 03-03-2025 09:27-0400 SaO2% (BldA) [Mass fraction] 96 % Dr. Kevin Booker DO Work Phone: [facility] 03-03-2025 09:27-0400 Systolic blood pressure 142 mm[Hg] Dr. Kevin Booker DO Work Phone: [facility] 05-20-2024 08:22-0400 Body height 182.9 cm Marine Burgess MD Work Phone: [facility] 05-20-2024 08:22-0400 Body mass index (BMI) [Ratio] 38.65 kg/m2 Marine Burgess MD Work Phone: [facility] 05-20-2024 08:22-0400 Body weight 129.28 kg Marine Burgess MD Work Phone: [facility] 05-20-2024 08:22-0400 Diastolic blood pressure 82 mm[Hg] Marine Burgess MD Work Phone: [facility] 05-20-2024 08:22-0400 Heart rate 92 /min Marine Burgess MD Work Phone: [facility] 05-20-2024 08:22-0400 Systolic blood pressure 134 mm[Hg] Marine Burgess MD Work Phone: [facility] 10-09-2023 17:37-0500 Diastolic Blood Pressure Non-Invasive 74 mm[Hg] DR MILTON CARPENTER MD [facility] 10-09-2023 17:37-0500 Heart rate 98 /min DR MILTON CARPENTER MD [facility] 10-09-2023 17:37-0500 Respiratory rate 18 /min DR MILTON CARPENTER MD [facility] 10-09-2023 17:37-0500 Systolic Blood Pressure Non-Invasive 138 mm[Hg] DR MILTON CARPENTER MD [facility] 10-09-2023 14:33-0500 Body height [address] MILTON CARPENTER MD [facility] 10-09-2023 14:33-0500 Body temperature 97.16 [degF] DR MILTNO CARPENTER MD [facility] 10-09-2023 14:33-0500 Body weight [address] MILTON CARPENTER MD [facility] 10-09-2023 14:33-0500 Diastolic Blood Pressure Non-Invasive 86 mm[Hg] DR MILTON CARPENTER MD [facility] 10-09-2023 14:33-0500 Heart rate 108 /min DR MILTON CARPENTER MD [facility] 10-09-2023 14:33-0500 Respiratory rate 18 /min DR MILTON CARPENTER MD [facility] 10-09-2023 14:33-0500 Systolic Blood Pressure Non-Invasive 145 mm[Hg] DR MILTON CARPENTER MD [facility] 05-20-2023 15:24-0400 Body height 182.9 cm Marine Burgess MD Work Phone: [facility] 05-20-2023 15:24-0400 Body weight 129.28 kg Marine Burgess MD Work Phone: [facility] 05-20-2023 15:24-0400 Diastolic blood pressure 84 mm[Hg] Marine Burgess MD Work Phone: [facility] 05-20-2023 15:24-0400 Heart rate 113 /min Marine Burgess MD Work Phone: [facility] 05-20-2023 15:24-0400 Systolic blood pressure 148 mm[Hg] Marine Burgess MD Work Phone: [facility] Encounters Encounter Date Encounter Type Care Provider Facility Start: 05-09-2025 [facility] Start: 03-03-2025 End: 03-03-2025 Patient encounter procedure Irasema PERALES -[facility] Work Phone: Start: 03-03-2025 End: 03-03-[address] Kevin Booker DO Work Phone: [facility] Work Phone: Start: 12-09-2024 End: 12-09-2024 ambulatory KEVIN BOOKER DO Facility:[facility] Start: 05-20-2024 End: 05-20-2024 ambulatory MARINE BURGESS Facility:[facility] Start: 05-20-2024 End: 05-20-2024 Patient encounter procedure Marine Burgess MD Work Phone: Cardiology Comment on above: Presence of drug coa yvon stent in left circumflex coronary artery (Primary Dx); S/P CABG x 1; Coronary artery disease involving [place] coronary artery of [place] heart without angina pectoris; Personal history of DVT (deep vein thrombosis) Start: 11-04-2023 End: 11-05-2023 ambulatory KEVIN BOOKER DO Facility:[facility] Start: 11-04-2023 End: 11-04-2023 Patient encounter procedure KEVIN BOOKER DO [facility] Start: 10-09-2023 End: 10-09-2023 Emergency department patient visit DR MILTON CARPENTER MD Facility:[facility] Start: 10-09-2023 End: 10-09-2023 Emergency department patient visit DR MILTON CARPENTER MD [facility] Start: 05-20-2023 End: 05-20-2023 Patient encounter procedure Marine Burgess MD Work Phone: Cardiology Comment on above: Presence of drug coa yvon stent in left circumflex coronary artery (Primary Dx); S/P CABG x 1; Coronary artery disease involving [place] coronary artery of [place] heart without angina pectoris Start: 05-02-2023 End: 05-03-2023 ambulatory KEVIN BOOKER DO Facility:[facility] Start: 05-02-2023 End: 05-02-2023 Patient encounter procedure KEVIN BOOKER DO [facility] Procedures Date Procedure Procedure Detail Performing Clinician Start: 05-20-2024 Ecg routine ecg w/le ast 12 lds i&r only [facility] Provider Start: 05-20-2023 Ecg routine ecg w/le ast 12 lds i&r only [facility] Provider Start: 06-30-2016 History of coronary artery bypass grafting S/P CABG x 1 Marine Burgess MD Work Phone: Start: 09-14-2015 Heart structure (bod y structure) KEVIN BOOKER DO Comment on above: CABGx1 Start: 12-27-2014 Heart structure (bod y structure) KEVIN BOOKER DO Comment on above: stents x2 Start: 09-14-1996 Tonsillectomy KEVIN ROE DO Comment on above: with UPV History of coronary artery bypass grafting S/P CABG (coronary artery bypass graft) KEVIN BOOKER DO History of coronary artery bypass grafting S/P CABG x 1 Marine Burgess MD Work Phone: History of coronary artery bypass grafting S/P CABG x 1 Marine Burgess MD Work Phone: Structure of anterio r portion of neck (body structure) KEVIN BOOKER DO Plan of Treatment Date Care Activity Detail Author Start: 04-22-2026 Urine microalbumin profile DTaP,Tdap,Td Vaccine (2 - Td or Tdap) [facility] Start: 05-19-2025 End: 05-19-2025 Patient encounter procedure 05/19/2025 8:40 AM EDT Office Visit Cardiology [address] [place] [address] [place] [address] [place], [place] [id number] Return in about 1 year (around 05/20/2025). Cardiology Comment on above: Return in about 1 ye ar (around 05/20/2025). Start: 05-15-2024 Covid-19 Vaccine ( season) Covid-19 Vaccine ( season) [facility] Start: 05-15-2024 Influenza vaccination Influenza Vacc ine (#1) [facility] Start: 2024 RSV Vaccine (1 - 1-d ose 60+ series) RSV Vaccine (1 - 1-dose 60+ series) [facility] Start: 05-15-2023 Influenza vaccination INFLUENZA (#1) [facility] Start: 09-14-2022 DEPRESSION ASSESSMENT DEPRESSION ASS ESSMENT [facility] Start: 05-18-2020 Hepatitis B surface antibody level LDL CHOLESTEROL [facility] Start: 11-22-2019 Hemoglobin A1c measurement HbA1C [facility] Start: 11-22-2019 Hemoglobin A1c/Hemoglobin.total in Blood HBA1C [facility] Start: 2019 PROSTATE CANCER SCREENING DISCUSSION PROSTATE CANCER SCREENING DISCUSSION [facility] Start: 2019 Prostate specific antigen measurement Prostate Cancer Screening Discussion [facility] Start: 04-17-2017 Glaucoma screening Dilated Retinal E xam [facility] Start: 04-17-2017 Hepatitis C antibody , confirmatory test DILATED RETINAL EXAM [facility] Start: 06-11-2016 Pneumococcal vaccination Pneum ococcal Vaccine (2 of 2 - PPSV23 or PCV20) [facility] Start: 02-18-2016 Hepatitis B screening URINE ALBUMIN:CREATININE RATIO [facility] Start: 2014 SHINGRIX VACCINE (1 of 2) SHINGRIX VACCINE (1 of 2) [facility] Start: 2009 COLOGUARD (FIT-DNA) COLOGUARD (FIT-D NA) [facility] Start: 2009 Colonoscopy COLONOSCOPY [facility] Start: 2009 COLORECTAL CANCER SCREENING COLORECTAL CANCER SCREENING [facility] Start: [address] COLONOGRAPHY [facility] Start: 2009 FECAL OCCULT BLOOD FECAL OCCULT BLOO D [facility] Start: 2009 Screening for malign ant neoplasm of colon [facility] Start: 2009 SIGMOIDOSCOPY SIGMOIDOSCOPY [facility] Start: 1983 Urine microalbumin profile DTAP,TDAP,TD (1 - Tdap) [facility] Start: 1982 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 ANNUAL PCP TEAM CHRONIC DISEASE VISIT [facility] Start: 1982 Anxiety Screening Anxiety Screening [facility] Start: 1982 Depression Screening Depression Scre ening [facility] Start: 1982 HIV SCREENING HIV SCREENING [facility] Start: 1982 HIV screening HIV Screening [facility] Start: 1974 3 comp foot exam completed DIABETIC FOOT EXAM [facility] Start: 1974 Diabetic foot examination Diabetic Foot Exam [facility] Start: 1970 PNEUMOCOCCAL (1 - PCV) PNEUMOCOCCAL (1 - PCV) [facility] Start: 1964 COVID-19 VACCINE (#1) COVID-19 VACCI NE (#1) [facility] End: 05-20-2024 ECG COMPLETE [facility] Work Phone: Comment on above: 1 Occurrences starti ng 05/20/2023 until 05/20/2024 Ordered: 05/20/2024 ECG COMPLETE ECG COMPLETE ECG 05/20/2023 3:32 PM EDT [facility] Immunizations Immunization Date Immunization Notes Care Provider Fa cili 07-25-2019 influenza virus vaccine, unspecified formulation Marine Burgess MD Work Phone: [facility] 07-24-2019 influenza virus vaccine, unspecified formulation KEVIN BOOKER DO [facility] 05-16-2016 influenza virus vaccine, unspecified formulation KEVIN BOOKER DO [facility] 04-22-2016 tetanus toxoid, redu cristiana diphtheria toxoid, and acellular pertussis vaccine, adsorbed KEVIN BOOKER DO [facility] 04-16-2016 pneumococcal conjuga te vaccine, 13 valent KEVIN BOOKER DO [facility] 09-14-2013 influenza virus vaccine, unspecified formulation KEVIN BOOKER DO [facility] Payers Date Payer Category Payer Self-pay 2019 Unknown [employer] PPO [id number] 2019-Present [phone] [address] [place] [address] PPO [id number] 2019 Unknown [id number] 2014 Unknown ALETHEA [id number] 1964 Unknown [id number] 1964 Unknown [id number] 1964 Unknown [id number] 1964 Unknown [id number] Unknown [id number] Unknown [id number] Social History Date Type Detail Facility Start: 08-09-2019 End: 10-09-2021 Tobacco smoking status Never smoked tobacco (finding) [facility] Start: 1965 Sex Assigned At Male A [facility] Start: 06-10-2016 Tobacco use and exposure Smokeless tobacco non-user [facility] Start: 05-24-2019 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 (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) [facility] Start: 05-24-2019 End: 05-20-2023 History of Social function [facility] Start: 05-24-2019 End: 05-20-2023 Tobacco use panel [facility] National Score (1-100), lower number is lower risk 58 [facility] Start: 1965 Sex Assigned At Not on file C [facility] Start: 12-25-2014 Lives [facility] Medical Equipment Procedure Code Equipment Code Equipment Origin al Text Equipment Identifier Dates See Instructions , Dispense glucose test strips, #400, use 1 strip as directed 4 times daily to test blood sugar, test frequently due to fluctuating blood sugars; diagnosis: E11.9, # 400 EA, 3 Refill(s), Pharmacy: [facility] ([facility]), Diabetes, 183, cm, 11/06/22 8:00:00 EST, Height, 125.9, kg, 11/06/22 8:00:00 EST, Dosing Weight Start: 11-06-2022 See Instructions , Dispense UltraFine lancets, #400, use as directed 4 times daily to test blood sugar, test frequently due to fluctuating blood sugars; diagnosis: E 11.9, # 400 EA, 3 Refill(s), Pharmacy: [facility] ([facility]), Diabetes, 183, cm, 11/06/22 8:00:00 EST, Height, 125.9, kg, 11/06/22 8:00:00 EST, Dosing Weight Start: 11-06-2022 USE WITH INSULIN PENS up to 6 times daily [id number] Start: 09-23-2016 Comment on above: USE WITH INSULIN PEN S up to 6 times daily See Instructions , Dispense glucose test strips, #400, use 1 strip as directed 4 times daily to test blood sugar, test frequently due to fluctuating blood sugars; diagnosis: E11.9, # 400 EA, 3 Refill(s), Pharmacy: [facility]), Diabetes, 183, cm, 11/06/22 8:00:00 EST, Height, 125.9, kg, 11/06/22 8:00:00 EST, Dosing Weight Start: 11-06-2022 See Instructions , Dispense UltraFine lancets, #400, use as directed 4 times daily to test blood sugar, test frequently due to fluctuating blood sugars; diagnosis: E 11.9, # 400 EA, 3 Refill(s), Pharmacy: [facility] ([facility]), Diabetes, 183, cm, 11/06/22 8:00:00 EST, Height, 125.9, kg, 11/06/22 8:00:00 EST, Dosing Weight Start: 11-06-2022 See Instructions , Dispense glucose test strips, #400, use 1 strip as directed 4 times daily to test blood sugar, test frequently due to fluctuating blood sugars; diagnosis: E11.9, # 400 EA, 3 Refill(s), [facility] Diabetes, 183, cm, 11/06/22 8:00:00 EST, Height, 125.9, kg, 11/06/22 8:00:00 EST, Dosing Weight Start: 11-06-2022 See Instructions , Dispense UltraFine lancets, #400, use as directed 4 times daily to test blood sugar, test frequently due to fluctuating blood sugars; diagnosis: E 11.9, # 400 EA, 3 Refill(s), Pharmacy: [facility] ([facility]), Diabetes, 183, cm, 11/06/22 8:00:00 EST, Height, 125.9, kg, 11/06/22 8:00:00 EST, Dosing Weight Start: 11-06-2022 Lancets 30 gauge misc Start: 10-09-2021 Pen Needle, Diabetic 31 gauge x 3/16 needle Start: 10-09-2021 Clinical Notes 06-06-2013 to 05-20-2024 Marine Burgess MD - 05/20/2024 8:31 AM Marine Simon MD - 05/20/2023 3:47 PM EDT Note Date & Type Note Facility 05-20-2024 Note HNO ID: [id number] Author: MARINE BURGESS MD Service: ? Author Type: Physician Type: Progress Notes Filed: 05/20/2024 08:52 Note Text: SUBJECTIVE: HPI: The patient is an extremely pleasant, 59-year-old gentleman, with a high risk factor profile for coronary artery disease, including family history of premature onset coronary disease and diabetes. The patient has well-documented coronary artery disease, having undergone drug-eluting stent ? 2 deployment to a ramus intermedius lesion at [facility] in December 2014. Catheterization also revealed mild left anterior descending disease and well-preserved left ventricular ejection fraction. At [facility] scan provocative nuclear testing, April 2016, there was evidence of 10% left ventricular mass ischemia, in the left anterior descending distribution. PROCEDURE: Left heart catheterization, selective coronary arteriogram, left ventriculogram and visualization of left internal mammary artery. FINDINGS: Hemodynamics: LV pressure: 116/EDP 15. Aortic Pressure: 112/69 mean 89. COMMENT: There was no gradient demonstrated from LV to aorta pullback. CORONARY ARTERIES: COMMENT: There is evidence of mild calcification of the coronary skeleton. LEFT MAIN: This is a large caliber, medium length, normal vessel. LEFT ANTERIOR DESCENDING: This is a medium to large caliber vessel with evidence of a 99% ostial/proximal stenosis with severe eccentric plaque as well as a 40% mid vessel stenotic segment. There is SALINAS grade 2 flow in the left anterior descending. RAMUS INTERMEDIUS: This is a large caliber vessel with evidence of widely patent previously deployed stents. CIRCUMFLEX: This is a large caliber, normal vessel. RIGHT CORONARY ARTERY: This is a large caliber, dominant vessel demonstrating 30% proximal luminal irregularity as well as 30% midvessel stenosis. LEFT INTERNAL MAMMARY ARTERY: This vessel was visualized via left subclavian cannulation. The left internal mammary artery is a medium caliber, widely patent vessel. LEFT VENTRICULOGRAM: This was obtained in the [place]ERSON projection only. The left ventricle does not appear dilated. There are no discrete regional wall motion abnormalities. Left ventricular ejection fraction is normal, estimated at 60%. The ascending aorta is normal in caliber. The aortic valve appears trileaflet. There is no evidence of mitral regurgitation. IN SUMMARY: 1. Severe left anterior descending disease. 2. Mild right coronary artery disease. 3. Normal left ventricular function with ejection fraction estimated at 60%. The patient underwent coronary artery bypass grafting x 1 with left internal mammary artery to the left anterior descending, May 2016. The patient underwent evaluation by the electrophysiology service for chronic persistent sinus tachycardia. Atenolol was introduced but the patient was intolerant and the drug was discontinued. The patient had been lost to follow-up, due to loss of insurance coverage Echocardiogram, May 2019, revealed preserved left ventricular systolic function with an ejection fraction of 66%. There was evidence of mild dilatation of the ascending aorta, with the mid ascending aorta dimension of 3.4 cm. The patient had been lost to follow-up and [facility]. The patient has ongoing treatment for DVT, through Dr. Tatum in [place]. CARDIAC HISTORY: SYMPTOMS: Chest pain/discomfort: No, Palpitations:No, Arrhythmia: No Dyspnea: No, Dyspnea at rest: No, Nocturnal dyspnea: Yes Orthopnea: No, Diaphoresis: No, Dizziness: No, Syncope: No, Edema: No, Nocturia: No, Impaired exercise tolerance: No, Claudication:No CONDITIONS: Hypertension: No, Heart failure:No, [place] Heart Association Functional Classification: Class II, Atrial fibrillation:No, History of myocardial infarction/angina: Yes, History of CABG/PCI:Yes, Valvular heart disease: No, Cardiomyopathy: No, Aortic diseases: No, Peripheral vascular disease: No, History of cerebrovascular accident: No, History of pulmonary embolism No, History of DVT Yes. History of rheumatic fever: No, History of transient ischemic attacks: No, Congenital heart disease: No, Pericarditis: No, Pericardial Effusion: No CORONARY RISK FACTORS: Family history of coronary artery disease Yes: Family history CAD in a first degree relative brother Premature onset: Yes, Tobacco use No, Sedentary lifestyle Yes, Hypertension No, Hyperlipidemia Yes, Diabetes mellitus Yes, Obesity Yes, Peripheral vascular disease No. HISTORIES: FAMILY HISTORY Father: Coronary Artery Disease (dies at age of 54 [place] 99% Had CHF) Brother: Coronary Artery Disease (LAD blocked 99% on LAD. still living.had it at 42), Coronary Artery Disease (Age 47 when he found to have 99%LAD blocked) Maternal Grandfather: Coronary Artery Disease ( at age of 48) Paternal Grandfather: Coronary Artery Disease ( at age of 45of LAD black) Abbie (more content not included)... [facility] 05-20-2024 History of Present illness Narrative SUBJECTIVE: HPI: The patient is an extremely pleasant, 59-year-old gentleman, with a high risk factor profile for coronary artery disease, including family history of premature onset coronary disease and diabetes. The patient has well-documented coronary artery disease, having undergone drug-eluting stent 2 deployment to a ramus intermedius lesion at [facility] in December 2014. Catheterization also revealed mild left anterior descending disease and well-preserved left ventricular ejection fraction. At [facility] scan provocative nuclear testing, April 2016, there was evidence of 10% left ventricular mass ischemia, in the left anterior descending distribution. PROCEDURE: Left heart catheterization, selective coronary arteriogram, left ventriculogram and visualization of left internal mammary artery. FINDINGS: Hemodynamics: LV pressure: 116/EDP 15. Aortic Pressure: 112/69 mean 89. COMMENT: There was no gradient demonstrated from LV to aorta pullback. CORONARY ARTERIES: COMMENT: There is evidence of mild calcification of the coronary skeleton. LEFT MAIN: This is a large caliber, medium length, normal vessel. LEFT ANTERIOR DESCENDING: This is a medium to large caliber vessel with evidence of a 99% ostial/proximal stenosis with severe eccentric plaque as well as a 40% mid vessel stenotic segment. There is SALINAS grade 2 flow in the left anterior descending. RAMUS INTERMEDIUS: This is a large caliber vessel with evidence of widely patent previously deployed stents. CIRCUMFLEX: This is a large caliber, normal vessel. RIGHT CORONARY ARTERY: This is a large caliber, dominant vessel demonstrating 30% proximal luminal irregularity as well as 30% midvessel stenosis. LEFT INTERNAL MAMMARY ARTERY: This vessel was visualized via left subclavian cannulation. The left internal mammary artery is a medium caliber, widely patent vessel. LEFT VENTRICULOGRAM: This was obtained in the [place] projection only. The left ventricle does not appear dilated. There are no discrete regional wall motion abnormalities. Left ventricular ejection fraction is normal, estimated at 60%. The ascending aorta is normal in caliber. The aortic valve appears trileaflet. There is no evidence of mitral regurgitation. IN SUMMARY: 1. Severe left anterior descending disease. 2. Mild right coronary artery disease. 3. Normal left ventricular function with ejection fraction estimated at 60%. The patient underwent coronary artery bypass grafting x 1 with left internal mammary artery to the left anterior descending, May 2016. The patient underwent evaluation by the electrophysiology service for chronic persistent sinus tachycardia. Atenolol was introduced but the patient was intolerant and the drug was discontinued. The patient had been lost to follow-up, due to loss of insurance coverage Echocardiogram, May 2019, revealed preserved left ventricular systolic function with an ejection fraction of 66%. There was evidence of mild dilatation of the ascending aorta, with the mid ascending aorta dimension of 3.4 cm. The patient had been lost to follow-up and presented to [facility]. The patient has ongoing treatment for DVT, through Dr. Tatum, in [place]. CARDIAC HISTORY: SYMPTOMS: Chest pain/discomfort: No, Palpitations:No, Arrhythmia: No Dyspnea: No, Dyspnea at rest: No, Nocturnal dyspnea: Yes Orthopnea: No, Diaphoresis: No, Dizziness: No, Syncope: No, Edema: No, Nocturia: No, Impaired exercise tolerance: No, Claudication:No CONDITIONS: Hypertension: No, Heart failure:No, [place] Heart Association Functional Classification: Class II, Atrial fibrillation:No, History of myocardial infarction/angina: Yes, History of CABG/PCI:Yes, Valvular heart disease: No, Cardiomyopathy: No, Aortic diseases: No, Peripheral vascular disease: No, History of cerebrovascular accident: No, History of pulmonary embolism No, History of DVT Yes. History of rheumatic fever: No, History of transient ischemic attacks: No, Congenital heart disease: No, Pericarditis: No, Pericardial Effusion: No CORONARY RISK FACTORS: Family history of coronary artery disease Yes: Family history CAD in a first degree relative brother Premature onset: Yes, Tobacco use No, Sedentary lifestyle Yes, Hypertension No, Hyperlipidemia Yes, Diabetes mellitus Yes, Obesity Yes, Peripheral vascular disease No. HISTORIES: FAMILY HISTORY Father: Coronary Artery Disease (dies at age of 54 [place] 99% Had CHF) Brother: Coronary Artery Disease (LAD blocked 99% on LAD. still living.had it at 42), Coronary Artery Disease (Age 47 when he found to have 99%LAD blocked) Maternal Grandfather: Coronary Artery Disease ( at age of 48) Paternal Grandfather: Coronary Artery Disease ( at age of 45of LAD black) Paternal Uncle: Coronary Artery Disease (50s when of cad), Coronary Artery Disease (50s when of cad), Coronary Artery Disease (50s when of cad), Coronary Artery Disease (50s when of cad), Coronary Artery Disease (50s when of cad), Coronary Artery Disease (59, had a stroke in october) PAST MEDICAL HISTORY Dm (Diabetes Mellitus) (Hcc) PAST SURGICAL HISTORY Tonsillectomy Hx Tongue Base Vol Reduction Vasectomy Tobacco Use: Not on file Alcohol Use: Not on file 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 [employer] REVIEW OF SYSTEMS: Constitutional: Fatigue: No, Weight loss: No, Weight gain: No, Fever: No, Chills: No Eyes: Blurred or Reduced Vision:No Ears: Hearing Loss:No Nose,Throat: Epistaxis:No, Bleeding gums:No Respiratory: Dyspnea:No, Cough:No, Hemoptysis:No, Wheezing:No, Pleuritic pain:No, Sleep Apnea:Yes, COPD:No, Asthma:No Gastrointestinal: Hematemesis:No, Blood in stool:No, Abdominal pain:No, Nausea and/or vomiting:No Genitourinary: Dysuria:No, Hematuria:No, Renal insufficiency:No, Pregnancies:No Hematologic: Anemia:No, Bruises easily:Yes, Bleeds easily:No History of Cancer: No Musculoskeletal: Muscle pain:No, Arthritis/Arthralgia:No Skin: Rash:No, Pruritus:No Neurologic: Headache:No, Dizziness:No, Seizures:No, Dementia:No Psychiatric: Anxiety:No, Depression:No, Over the past 2 weeks have you felt down, depressed or hopeless?:No, Over the past 2 weeks have you felt little interest or pleasure in doing things?:No Endocrine: Polyphagia:No, Polydipsia:No, Polyuria:No, Goiter:No, Hyper/hypothyroidism:No, Dyslipidemia:No Allergic, Immunology: Urticaria:No, Collagen vascular disease:No Other: The rest of the review of systems is unremarkable and negative or non-contributory. OBJECTIVE: VITALS: Blood pressure 134/82, pulse 92, height 182.9 cm (6'), weight 129.3 kg (285 lb). PHYSICAL EXAMINATION: Physical examination unchanged from previous, see below. GENERAL APPEARANCE: Appears Healthy:Yes, Obese:Yes, Acute distress:No, Appearance consistent with age:Yes, Responds appropriately: Yes MENTAL STATUS: Alert:Yes, Cooperative:Yes, Pleasant:Yes, Affect: normal EYES: Conjunctiva/corneas normal:Yes, PERRL:Yes, Scleral icterus:No, Xanthelasma:No HEAD, NECK: Good oral hygiene:Yes, Oral mucosa normal:Yes, Jugular venous distention:No, Hepatojugular reflux:No, Thyromegaly:No, Carotid endarterectomy:No,Thyroidectomy :No RESPIRATORY:Chest movement symmetrical:Yes, Respiratory effort normal:Yes, Percussion of chest normal:Yes, Breath sounds normal:Yes, Crackles:No, Rales:No, Rhonchi:No, Wheezing:No, Pleural friction rub:No, Evidence of pacemaker/ICD:No, Median sternotomy scar:No, Sternal instability:No CARDIAC: Mcrae beat not localized, Cardiac thrill:No, Heart rate normal:Yes, Heart rhythm normal:Yes, S1 normal:Yes, S2 normal:Yes, S3 ausculated:No, S4 ausculated:No, Gallop ausculated:No, Heart murmur:No, Prosthetic valve click:No, Pericardial friction rub:No ABDOMINAL:Abdomen soft, non-tender. BS normal. No masses or organomegaly. and positive findings: Moderate obese VASCULAR:Radial pulse normal:Yes, Carotid pulse normal:Yes, Carotid bruit:No, Abdominal aorta palpable:No, Abdominal aortic bruit:No, Femoral pulse normal:Yes, Femoral bruit:No, Dorsalis pedis pulse present:Yes, Posterior tibial pulse present:Yes, Popliteal pulse:Yes, Varicose veins:No, Leg edema:No, Pedal edema:No NEUROLOGIC: Grossly non-focal:Yes MUSCULOSKELETAL: Muscle strength normal:Yes, Joint range of motion normal:Yes SKIN: Clubbing:No, Cyanosis:No, Pallor:No, Diaphoresis:No, Stasis dermatitis/post phlebitic changes:No, Cutaneous xanthoma:No PREVENTATIVE CARE: GENERAL: Non-smoker Discussed aspirin treatment. DIET/EXERCISE: Recommended weight loss. Discussed weight management stratagies. Recommended regular phyical activity. Discussed low sodium diet. Discussed low cholesterol diet. PATIENT EDUCATION: Continue with medications as directed. Prescription risks and side effects discussed. Instructed on chest pain. ASSESSMENT/PLAN/RECOMMENDATIONS: The patient continues to do well at today's visit, with no suggestion of cardiac decompensation. After reviewing his current medical regimen, I see no reason to make any changes. Consideration will be given to discontinuing Plavix at his next visit. Risk factor modification, namely aggressive weight loss and maintenance, regimented diet and exercise was strongly encouraged. The patient will follow in the office in 12 months. Portions of the encounter note have been copied from a previous note, dated 05/20/2023, which has been updated where appropriate and reflects my current medical decision making from today. I spent a total of 35 minutes on the date of the service which included preparing to see the patient, [id number] patient care, completing clinical documentation, performing a medically appropriate examination, counseling and educating the patient/family/caregiver and ordering medications, tests or procedures. Presence of drug coated stent in left circumflex coronary artery (primary encounter diagnosis) S/p cabg x 1 Coronary artery disease involving [place] coronary artery of [place] heart without angina pectoris Personal history of dvt (deep vein thrombosis) Marine Burgess MD documented in this encounter [facility] 10-09-2023 Hospital Discharge instructions Patient Education 10/09/2023 17:28:37 Deep Vein Thrombosis (DVT) Deep Vein Thrombosis (DVT) Deep vein thrombosis (DVT) occurs when a blood clot (thrombus) forms in a deep vein. This happens most often in the leg. It can also happen in the arms or other parts of the body. A part of the clot called an embolus can break off and travel to the lungs. When this happens, it s called a pulmonary embolism (PE). PE is a medical emergency. It can cut off blood flow and lead to . Both DVT and PE are closely related. Together, they are often referred to by the term venous thromboembolism (VTE). Risk factors for DVT Anything that slows blood flow, injures the lining of a vein, or increases blood clotting can make you more prone to having DVT. This includes the following: Long periods without movement (such as when sitting for many hours at a time or when recovering from major surgery or illness) Estrogen (female hormone) therapy, such as hormone replacement therapy (HRT) or control pills Fractured hip or leg Major surgery or joint replacement Major trauma or spinal cord injury Cancer Family history Excess weight or obesity Smoking Older age Symptoms DVT does not always cause symptoms. When symptoms do occur, they may appear around the site of the DVT, such as in the leg. Possible symptoms include: Swelling Pain Warmth Redness Tenderness Home care You were likely prescribed blood thinners (anticoagulants). They may be given as pills (oral) or shots (injections). Follow all instructions when using these medicines. Note: Don't take blood thinners with other medicines, herbal remedies, or supplements without talking to your provider first. Certain medicines or products can affect how blood thinners work. Follow your provider s instructions about activity and rest. If support or compression stockings are prescribed, wear them as directed. These may help improve blood flow in the legs. When sitting or lying down, move your ankles, toes and knees often. This may also help improve blood flow in the legs. Follow-up care Follow up with your healthcare provider, or as advised. If imaging tests were done, they may need further review by a doctor. You will be told of any new findings that may affect your care. When to seek medical advice Call your healthcare provider right away if any of these occur: New or increased swelling, pain, tenderness, warmth, or redness, in the leg, arm, or other area Blood in the urine Bleeding with bowel movements Call 911 Call 911 if any of these occur: Bleeding from the nose, gums, a cut, or vagina Heavy or uncontrolled bleeding Trouble breathing Chest pain or discomfort that worsens with deep breathing or coughing Coughing (may cough up blood) Fast heartbeat Sweating Anxiety Lightheadedness, dizziness, or fainting [id number] [employer] [place] [address]. All rights reserved. This information is not intended as a substitute for professional medical care. Always follow your healthcare professional's instructions. Follow Up Care 10/09/2023 14:20:31 With:XAVI TATUM Address: [facility] [address] [place] [id number] Business (1) When:2-4 days With:KEVIN BOOKER DO Address: [address] [place] [address] Physicians [place], [place] [id number]- [phone] When:Within 3 Day(s) Comments:Return to ED if symptoms worsen [facility] 10-09-2023 Emergency department Discharge summary Discharge Instructions Thank you for allowing [facility] to assist you with your healthcare needs. The following is important discharge information regarding your hospital visit. Diagnosis from Today's Visit DVT - Deep vein thrombosis Leg pain-swelling What to Do Next Instructions from Your Care Team No qualifying data available. Post Acute Orders No qualifying data available. You Need to Schedule the Following Appointments Follow Up with XAVI TATUM When Within 2-4 days Where: [facility] [id number] [phone] Business (1) Follow Up with TERRI, KEVIN DO When In 3 days Why: Return to ED if symptoms worsen [facility] [place] [address]- [phone] Allergies Trulicity (Nausea and vomiting) codeine (Rash) Medications Please ask your primary doctor or pharmacist before taking any other medication not listed, including over the counter drugs, herbal medications, vitamins and or supplements as they may interact with your home medications. What How Much When Why Instructions Last Dose New apixaban (Eliquis Starter Pack for Treatment of DVT and PE 5 mg oral tablet) [10mg BID x 7days-then 5mg BID] by mouth Two (2) times a day Duration: 30 Days Printed Prescription Unchanged atorvastatin (atorvastatin 80 mg oral tablet) See instructions TAKE 1 TABLET BY MOUTH DAILY Unchanged clopidogrel (clopidogrel 75 mg oral tablet) See instructions TAKE 1 TABLET BY MOUTH DAILY Unchanged DME (Blood Glucose Test Machine) See instructions Use as directed to test blood sugar 4 times daily; this frequently due to fluctuating blood sugars. Brand type per insurance or patient preference Unchanged DME (Blood Glucose Test Strips) See instructions Diabetes Dispense glucose test strips, #400, use 1 strip as directed 4 times daily to test blood sugar, test frequently due to fluctuating blood sugars; diagnosis: E11.9 Unchanged DME (Lancets) See instructions Diabetes Dispense UltraFine lancets, #400, use as directed 4 times daily to test blood sugar, test frequently due to fluctuating blood sugars; diagnosis: E 11.9 Unchanged DME (Pen needles 5 mm) See instructions Diabetes Use 1 needle 5 times daily to inject insulins; diagnosis: E 11.9 Unchanged insulin aspart (Novolog) (NovoLOG FlexPen 100 units/ mL injectable solution) 60 unit(s) Subcutaneous Four (4) times a day Duration: 90 Days Unchanged insulin degludec (Tresiba FlexTouch 200 units/ mL 3 mL subcutaneous solution) 140 unit(s) Subcutaneous Once a day Duration: 90 Days Unchanged losartan (losartan 25 mg oral tablet) 1 tab(s) by mouth Once a day Unchanged pantoprazole (pantoprazole 40 mg oral enteric coated tablet) See instructions TAKE 1 TABLET BY MOUTH DAILY Unchanged testosterone (testosterone 30 mg/ actuation transdermal solution) 2 pump(s) Transdermal Once a day Hypogonadism male Duration: 90 Days Please take this list to your next doctor s visit. Bring all medications you take, including over the counter medications, herbals and other supplements with you to your doctor s visit. Patients and families are reminded to discard old lists and to update any records with all medication providers or retail pharmacies. Education Materials Deep Vein Thrombosis (DVT) Deep vein thrombosis (DVT) occurs when a blood clot (thrombus) forms in a deep vein. This happens most often in the leg. It can also happen in the arms or other parts of the body. A part of the clot called an embolus can break off and travel to the lungs. When this happens, it s called a pulmonary embolism (PE). PE is a medical emergency. It can cut off blood flow and lead to . Both DVT and PE are closely related. Together, they are often referred to by the term venous thromboembolism (VTE). Risk factors for DVT Anything that slows blood flow, injures the lining of a vein, or increases blood clotting can make you more prone to having DVT. This includes the following: Long periods without movement (such as when sitting for many hours at a time or when recovering from major surgery or illness) Estrogen (female hormone) therapy, such as hormone replacement therapy (HRT) or control pills Fractured hip or leg Major surgery or joint replacement Major trauma or spinal cord injury Cancer Family history Excess weight or obesity Smoking Older age Symptoms DVT does not always cause symptoms. When symptoms do occur, they may appear around the site of the DVT, such as in the leg. Possible symptoms include: Swelling Pain Warmth Redness Tenderness Home care You were likely prescribed blood thinners (anticoagulants). They may be given as pills (oral) or shots (injections). Follow all instructions when using these medicines. Note: Don't take blood thinners with other medicines, herbal remedies, or supplements without talking to your provider first. Certain medicines or products can affect how blood thinners work. Follow your provider s instructions about activity and rest. If support or compression stockings are prescribed, wear them as directed. These may help improve blood flow in the legs. When sitting or lying down, move your ankles, toes and knees often. This may also help improve blood flow in the legs. Follow-up care Follow up with your healthcare provider, or as advised. If imaging tests were done, they may need further review by a doctor. You will be told of any new findings that may affect your care. When to seek medical advice Call your healthcare provider right away if any of these occur: New or increased swelling, pain, tenderness, warmth, or redness, in the leg, arm, or other area Blood in the urine Bleeding with bowel movements Call 911 Call 911 if any of these occur: Bleeding from the nose, gums, a cut, or vagina Heavy or uncontrolled bleeding Trouble breathing Chest pain or discomfort that worsens with deep breathing or coughing Coughing (may cough up blood) Fast heartbeat Sweating Anxiety Lightheadedness, dizziness, or fainting [id number] [employer]. [address] [place] [address]. All rights reserved. This information is not intended as a substitute for professional medical care. Always follow your healthcare professional's instructions. Additional Information VACCINATE! IT SAVES LIVES! Members of the community who have not yet received the COVID-19 vaccine and would like to receive it can visit one of [facility] vaccine clinics. There are many vaccine clinic locations within the [facility]. For locations and available times, please visit [email or web address] It is important to note that some COVID mobile vaccine clinics are held outdoors and may be canceled in rainy or stormy conditions. To learn more about pediatric vaccinations (ages 5-11), we invite you to visit the [facility] webpage. [email or web address] To learn more about the COVID-19 vaccine, we invite you to visit the CDC website for a list of frequently asked questions. https://www.cdc.gov/coronavirus/2 019-ncov/vaccines/faq.html [facility] Patient [facility] Access Instructions: Stay connected with your healthcare team and access your personal medical information anytime with the [facility] Patient Portal. If you would like a full copy of your medical records please contact the [facility] Medical Records Department Thursday through Thursday between 8a.m. and 4:30p.m. Please follow the directions below to access the portal: 1.Access the email account you provided upon registration to the [facility].2.Look for an invitation email from [facility].3.Open the email and access the invitation link: Accept Invitation to [facility]4.Fill in the required goodman to create your account. Sign into www.[email or web address] with your username and password that you created in the above steps to stay up to date. You can then view a summary of results, a summary of your visits, and the ability to download your summaries to your computer or send the information securely to a physician. Remember that your healthcare information is confidential, so carefully consider who you will allow to register on the [facility] Patient Portal for access to your information. You can also access the [facility] Patient Portal on the [employer]. Simply click on Health Records under Health Data and then click on the [email or web address] logo. HOW TO SAFELY DISPOSE OF PRESCRIPTION MEDICATIONS Please use one of the following methods to safely dispose of your unused medications. 1.Use a drug disposal kit: the drug disposal pouch allows you to safely discard your old and unused drugs. Ask your nurse to give you one when you are discharged.2.Visit a local take-back location: Many local pharmacies and police departments have programs that collect old and unwanted prescription drugs. Call your local pharmacy or go to http://StudyBlue.Antengo/6Q9Eh0x to find one close to you.3.Make use of household items: Use cat litter or old coffee grounds to dispose medications if other options are not available. Mix your drugs with these household products, seal them in an airtight container and throw it into the garbage. Call [facility]: [phone] to be sure your drugs can be disposed of in this way. Some medicines may require a different approach.4.Never flush your medications down the toilet. IF YOU HAVE BEEN PRESCRIBED AN OPIOIDS FOR PAIN If you have been prescribed an opioid (such as hydrocodone, oxycodone or morphine), it is critical to understand the possible side effects and risks of opioid pain medications. Even when taken as directed, opioids can have several side effects including: Tolerance, meaning you might need to take more of a medication for the same pain relief. Nausea, vomiting and/or constipation. Sleepiness, dizziness, dry mouth, confusion, depression or itching. Physical dependence, meaning you have withdrawal symptoms when a medication is stopped ? this can develop within a few days. KNOW YOUR RESPONSIBILITIES It is important to know exactly how much and how often to take the opioid pain medications you are prescribed. Never take opioids in higher amounts or more often than prescribed. Do not combine opioids with alcohol or other drugs that cause drowsiness, such as benzodiazepines, also known as benzos, including diazepam and alprazolam, muscle relaxants or sleep aids. Never sell or share prescription opioids. This is illegal. Store opioids in a secure place and out of reach of others (including children, family, friends and visitors). The last page(s) of this document has been signed and retained as a CHART COPY Signatures Patient Education Materials Deep Vein Thrombosis (DVT) Medication Leaflets My discharge plan and instructions have been reviewed and explained to me and I,JOHN CHAPA understand my current condition and have read and understand these discharge instructions. I have received a written copy of the plan/instructions. If I have questions, I am aware that I should contact my doctor. 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 The cardiomediastinal silhouette is within normal limits given portable technique. No significant pulmonary vascular congestion. Mild hazy appearance of the bibasilar lungs likely secondary to artifact from overlying tissue. Otherwise no focal consolidation, pneumothorax or large volume pleural effusion. No acute osseous abnormality. Degenerative changes of the spine. IMPRESSION: No acute radiographic findings. Preliminary Report was Dictated by a Resident I have personally reviewed all of the images of this examination and agree with the resident findings and interpretation. Interpreted by: Chang Joseph MD Preliminary Report By: Camille Sigala Electronically signed By Chang Joseph MD Dictated Date: 10/09/2023 4:23:00 PM Prelim Date: 10/09/2023 4:26:17 PM Sign Date: 10/09/2023 9:59:57 PM Ordering Provider: MILTON CARPENTER [facility] 10-09-2023 Note Sinus tachycardia Probable left atrial enlargement Consider anterior infarct Electronic Signature: MD MILTON CARPENTER MD 10/09/2023 15:47:44 [facility] 05-20-2023 History of Present illness Narrative SUBJECTIVE: HPI: The patient is an extremely pleasant, 58-year-old gentleman, with a high risk factor profile for coronary artery disease, including family history of premature onset coronary disease and diabetes. The patient has well-documented coronary artery disease, having undergone drug-eluting stent 2 deployment to a ramus intermedius lesion at [facility] in December 2014. Catheterization also revealed mild left anterior descending disease and well-preserved left ventricular ejection fraction. At [facility] scan provocative nuclear testing, April 2016, there was evidence of 10% left ventricular mass ischemia, in the left anterior descending distribution. PROCEDURE: Left heart catheterization, selective coronary arteriogram, left ventriculogram and visualization of left internal mammary artery. FINDINGS: Hemodynamics: LV pressure: 116/EDP 15. Aortic Pressure: 112/69 mean 89. COMMENT: There was no gradient demonstrated from LV to aorta pullback. CORONARY ARTERIES: COMMENT: There is evidence of mild calcification of the coronary skeleton. LEFT MAIN: This is a large caliber, medium length, normal vessel. LEFT ANTERIOR DESCENDING: This is a medium to large caliber vessel with evidence of a 99% ostial/proximal stenosis with severe eccentric plaque as well as a 40% mid vessel stenotic segment. There is SALINAS grade 2 flow in the left anterior descending. RAMUS INTERMEDIUS: This is a large caliber vessel with evidence of widely patent previously deployed stents. CIRCUMFLEX: This is a large caliber, normal vessel. RIGHT CORONARY ARTERY: This is a large caliber, dominant vessel demonstrating 30% proximal luminal irregularity as well as 30% midvessel stenosis. LEFT INTERNAL MAMMARY ARTERY: This vessel was visualized via left subclavian cannulation. The left internal mammary artery is a medium caliber, widely patent vessel. LEFT VENTRICULOGRAM: This was obtained in the HENDERSON projection only. The left ventricle does not appear dilated. There are no discrete regional wall motion abnormalities. Left ventricular ejection fraction is normal, estimated at 60%. The ascending aorta is normal in caliber. The aortic valve appears trileaflet. There is no evidence of mitral regurgitation. IN SUMMARY: 1. Severe left anterior descending disease. 2. Mild right coronary artery disease. 3. Normal left ventricular function with ejection fraction estimated at 60%. The patient underwent coronary artery bypass grafting x 1 with left internal mammary artery to the left anterior descending, May 2016. The patient underwent evaluation by the electrophysiology service for chronic persistent sinus tachycardia. Atenolol was introduced but the patient was intolerant and the drug was discontinued. The patient had been lost to follow-up, due to loss of insurance coverage Echocardiogram, May 2019, revealed preserved left ventricular systolic function with an ejection fraction of 66%. There was evidence of mild dilatation of the ascending aorta, with the mid ascending aorta dimension of 3.4 cm. The patient has been lost to follow-up and presents today to reestablish. CARDIAC HISTORY: SYMPTOMS: Chest pain/discomfort: No, Palpitations:No, Arrhythmia: No Dyspnea: No, Dyspnea at rest: No, Nocturnal dyspnea: Yes Orthopnea: No, Diaphoresis: No, Dizziness: No, Syncope: No, Edema: No, Nocturia: No, Impaired exercise tolerance: No, Claudication:No CONDITIONS: Hypertension: No, Heart failure:No, [place] Heart Association Functional Classification: Class II, Atrial fibrillation:No, History of myocardial infarction/angina: Yes, History of CABG/PCI:Yes, Valvular heart disease: No, Cardiomyopathy: No, Aortic diseases: No, Peripheral vascular disease: No, History of cerebrovascular accident: No, History of pulmonary embolism No, History of DVT No. History of rheumatic fever: No, History of transient ischemic attacks: No, Congenital heart disease: No, Pericarditis: No, Pericardial Effusion: No CORONARY RISK FACTORS: Family history of coronary artery disease Yes: Family history CAD in a first degree relative brother Premature onset: Yes, Tobacco use No, Sedentary lifestyle Yes, Hypertension No, Hyperlipidemia Yes, Diabetes mellitus Yes, Obesity Yes, Peripheral vascular disease No. HISTORIES: FAMILY HISTORY Father: Coronary Artery Disease (dies at age of 54 [place] 99% Had CHF) Brother: Coronary Artery Disease (LAD blocked 99% on LAD. still living.had it at 42), Coronary Artery Disease (Age 47 when he found to have 99%LAD blocked) Maternal Grandfather: Coronary Artery Disease ( at age of 48) Paternal Grandfather: Coronary Artery Disease ( at age of 45of LAD black) Paternal Uncle: Coronary Artery Disease (50s when of cad), Coronary Artery Disease (50s when of cad), Coronary Artery Disease (50s when of cad), Coronary Artery Disease (50s when of cad), Coronary Artery Disease (50s when of cad), Coronary Artery Disease (60, had a stroke in october) PAST MEDICAL HISTORY Dm (Diabetes Mellitus) (Hcc) PAST SURGICAL HISTORY Tonsillectomy Hx Tongue Base Vol Reduction Vasectomy Tobacco Use: Not on file Alcohol Use: Not on file 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 [employer] REVIEW OF SYSTEMS: Constitutional: Fatigue: No, Weight loss: No, Weight gain: No, Fever: No, Chills: No Eyes: Blurred or Reduced Vision:No Ears: Hearing Loss:No Nose,Throat: Epistaxis:No, Bleeding gums:No Respiratory: Dyspnea:No, Cough:No, Hemoptysis:No, Wheezing:No, Pleuritic pain:No, Sleep Apnea:Yes, COPD:No, Asthma:No Gastrointestinal: Hematemesis:No, Blood in stool:No, Abdominal pain:No, Nausea and/or vomiting:No Genitourinary: Dysuria:No, Hematuria:No, Renal insufficiency:No, Pregnancies:No Hematologic: Anemia:No, Bruises easily:Yes, Bleeds easily:No History of Cancer: No Musculoskeletal: Muscle pain:No, Arthritis/Arthralgia:No Skin: Rash:No, Pruritus:No Neurologic: Headache:No, Dizziness:No, Seizures:No, Dementia:No Psychiatric: Anxiety:No, Depression:No, Over the past 2 weeks have you felt down, depressed or hopeless?:No, Over the past 2 weeks have you felt little interest or pleasure in doing things?:No Endocrine: Polyphagia:No, Polydipsia:No, Polyuria:No, Goiter:No, Hyper/hypothyroidism:No, Dyslipidemia:No Allergic, Immunology: Urticaria:No, Collagen vascular disease:No Other: The rest of the review of systems is unremarkable and negative or non-contributory. OBJECTIVE: VITALS: Blood pressure 148/84, pulse 113, height 182.9 cm (6'), weight 129.3 kg (285 lb). PHYSICAL EXAMINATION: Physical examination unchanged from previous, see below. GENERAL APPEARANCE: Appears Healthy:Yes, Obese:Yes, Acute distress:No, Appearance consistent with age:Yes, Responds appropriately: Yes MENTAL STATUS: Alert:Yes, Cooperative:Yes, Pleasant:Yes, Affect: normal EYES: Conjunctiva/corneas normal:Yes, PERRL:Yes, Scleral icterus:No, Xanthelasma:No HEAD, NECK: Good oral hygiene:Yes, Oral mucosa normal:Yes, Jugular venous distention:No, Hepatojugular reflux:No, Thyromegaly:No, Carotid endarterectomy:No,Thyroidectomy :No RESPIRATORY:Chest movement symmetrical:Yes, Respiratory effort normal:Yes, Percussion of chest normal:Yes, Breath sounds normal:Yes, Crackles:No, Rales:No, Rhonchi:No, Wheezing:No, Pleural friction rub:No, Evidence of pacemaker/ICD:No, Median sternotomy scar:No, Sternal instability:No CARDIAC: Mcrae beat not localized, Cardiac thrill:No, Heart rate normal:Yes, Heart rhythm normal:Yes, S1 normal:Yes, S2 normal:Yes, S3 ausculated:No, S4 ausculated:No, Gallop ausculated:No, Heart murmur:No, Prosthetic valve click:No, Pericardial friction rub:No ABDOMINAL:Abdomen soft, non-tender. BS normal. No masses or organomegaly. and positive findings: Moderate obese VASCULAR:Radial pulse normal:Yes, Carotid pulse normal:Yes, Carotid bruit:No, Abdominal aorta palpable:No, Abdominal aortic bruit:No, Femoral pulse normal:Yes, Femoral bruit:No, Dorsalis pedis pulse present:Yes, Posterior tibial pulse present:Yes, Popliteal pulse:Yes, Varicose veins:No, Leg edema:No, Pedal edema:No NEUROLOGIC: Grossly non-focal:Yes MUSCULOSKELETAL: Muscle strength normal:Yes, Joint range of motion normal:Yes SKIN: Clubbing:No, Cyanosis:No, Pallor:No, Diaphoresis:No, Stasis dermatitis/post phlebitic changes:No, Cutaneous xanthoma:No PREVENTATIVE CARE: GENERAL: Non-smoker Discussed aspirin treatment. DIET/EXERCISE: Recommended weight loss. Discussed weight management stratagies. Recommended regular phyical activity. Discussed low sodium diet. Discussed low cholesterol diet. PATIENT EDUCATION: Continue with medications as directed. Prescription risks and side effects discussed. Instructed on chest pain. ASSESSMENT/PLAN/RECOMMENDATIONS: The patient remains well at today's visit, with no suggestion of cardiac decompensation. After reviewing his current medical regimen, I see no reason to make any changes. Risk factor modification, namely aggressive weight loss and maintenance, regimented diet and exercise was strongly encouraged. The patient is scheduled to undergo shoulder surgery and may proceed with an acceptable cardiac risk. Plavix may be held for 6 to 7 days preprocedure and resumed 48 hours postprocedure. The patient will follow in the office in 12 months. I spent a total of 35 minutes on the date of the service which included preparing to see the patient, [id number] patient care, completing clinical documentation, performing a medically appropriate examination, counseling and educating the patient/family/caregiver, and ordering medications, tests, or procedures. Presence of drug coated stent in left circumflex coronary artery (primary encounter diagnosis) S/p cabg x 1 Coronary artery disease involving [place] coronary artery of [place] heart without angina pectoris Marine Burgess MD documented in this encounter [facility] 06-06-2013 History of Past i llness Narrative Problem Noted Date Diagnosed Date Resolved Date Chest tightness or pressure 06/06/2013 01/24/2015 Last Assessment & Plan: Currently patient has no complaints. He is disappointed that hecould no have a cath, As all his brothers had normal stress tests and [facility]. Diabetes 06/03/2013 01/24/2015 Last Assessment & Plan: His last A1c was almost 11 in July. Was done at his work place. He ran out around a month ago. The metformin is 500 ER and he has some some diarrhea but he doesn't really care for the diarrhea. Wouldn't mind being on the medication He has not been exercising as her works too much. His sugars are not good, He is not eating right or regularly. Has not been checking sugars regularly. documented as of this encounter (statuses as of 05/21/2023) [facility]ments Appointment Date:05/07/2023 07:30:00 AM Scheduled Provider:KEVIN BOOKER DO Location:[email or web address] Appointment Type:PC OV Future Scheduled Tests Laboratory* Microalbumin Level Urine 11/06/22 [facility] Evaluation + Plan note Future Appointments Appointment Date:11/11/2023 09:00:00 AM Scheduled Provider:KEVIN BOOKER DO Location:[email or web address] Appointment Type:PC OV Future Scheduled Tests Laboratory* Lyme Disease Serology w/Reflex 10/07/23 * Antinuclear Antibody Screen, Serum 10/07/23 * Testosterone Level Total 10/07/23 * Thyroid Stimulating Hormone 10/07/23 * Uric Acid 10/07/23 * Rheumatoid Factor 10/07/23 * Complete Blood Count 10/07/23 * Albumin/Creatinine Ratio, Random Urine 10/07/23 * Microalbumin Level Urine 11/06/22 * Sedimentation Rate Automated 10/07/23 * Complete Metabolic Panel 10/07/23 [facility] Evaluation + Plan note Future Appointments Appointment Date:11/11/2023 09:00:00 AM Scheduled Provider:KEVIN BOOKER DO Location:[facility] Appointment Type:PC OV Diagnostic Tests Pending * Antinuclear Antibody Screen, Serum 11/04/23 * Rheumatoid Factor 11/04/23 * Lyme Disease Serology w/Reflex 11/04/23 Future Scheduled Tests Laboratory* Albumin/Creatinine Ratio, Random Urine 10/07/23 * Microalbumin Level Urine 11/06/22 [facility] Evaluation note* Diagnosis Presence of drug coated stent in left circumflex coronary artery- Primary Postsurgical percutaneous transluminal coronary angioplasty status S/P CABG x 1 Postsurgical aortocoronary bypass status Coronary artery disease involving [place] coronary artery of [place] heart without angina pectoris documented in this encounter [facility] note* Diagnosis Diabetes (HCC)- Primary Type II or unspecified type diabetes mellitus without mention of complication, not stated as uncontrolled Hyperlipidemia LDL goal < 70 Other and unspecified hyperlipidemia Back pain Backache, unspecified ESTELITA (obstructive sleep apnea) Obstructive sleep apnea (adult) (pediatric) Back ache- Primary Backache, unspecified Chest tightness or pressure Other chest pain Pain in the muscles Mylagia and myositis, unspecified Diabetes (HCC) Type II or unspecified type diabetes mellitus without mention of complication, not stated as uncontrolled Hyperlipidemia LDL goal < 70 Other and unspecified hyperlipidemia ESTELITA (obstructive sleep apnea) Obstructive sleep apnea (adult) (pediatric) Thoracic outlet syndrome Brachial plexus lesions Diabetes- Primary Type II or unspecified type diabetes mellitus without mention of complication, not stated as uncontrolled ESTELITA (obstructive sleep apnea) Obstructive sleep apnea (adult) (pediatric) Hyperlipidemia Other and unspecified hyperlipidemia Hyperlipidemia LDL goal < 70 Other and unspecified hyperlipidemia Back ache Backache, unspecified Chest tightness or pressure Other chest pain Hospital discharge follow-up- Primary Other follow-up examination CAD (coronary artery disease) Coronary atherosclerosis of unspecified type of vessel, [place] or graft Fatty liver Other chronic nonalcoholic liver disease Hyperlipidemia LDL goal < 70 Other and unspecified hyperlipidemia Low testosterone- Primary Other testicular hypofunction S/P drug eluting coronary stent placement Postsurgical percutaneous transluminal coronary angioplasty status Diabetes mellitus type 2, uncontrolled, without complications Type II or unspecified type diabetes mellitus without mention of complication, uncontrolled CAD (coronary artery disease) Coronary atherosclerosis of unspecified type of vessel, [place] or graft ESTELITA (obstructive sleep apnea) Obstructive sleep apnea (adult) (pediatric) Fatty liver Other chronic nonalcoholic liver disease Hyperlipidemia LDL goal < 70 Other and unspecified hyperlipidemia Presence of drug coated stent in left circumflex coronary artery- Primary Postsurgical percutaneous transluminal coronary angioplasty status S/P CABG x 1 Postsurgical aortocoronary bypass status Coronary artery disease involving [place] coronary artery of [place] heart without angina pectoris Personal history of DVT (deep vein thrombosis) Personal history of venous thrombosis and embolism documented [facility] noteNo assessment information availableJohn [facility] Work Phone: Hospital course Narrative No data available for this section [facility] Hospital Discharge instructions No data available for this section [facility] Progress note No data available for this section [facility] Reason for referral (narrative)* Outpatient Procedure (Routine) - Pending Review Specialty Diagnoses / Procedures Referred By Contac t Referred To Contact [facility] Diagnoses Presence of drug coated stent in left circumflex coronary artery S/P CABG x 1 Coronary artery disease involving [place] coronary [place] heart without angina pectoris Procedures ECG COMPLETE ECG ROUTINE ECG W/LEAST 12 LDS W/I&[place] [address] [place] [address] [facility] [place] [address] [place] [address] Referral ID Status Reason Start Date Expiration Date Visits Requested Visits Authorized [id number] Pending Review Auto-Generat ed Referral 05/20/2023 05/19/2024 1 1 [facility] for referral (narrative)* Outpatient Procedure (Routine) - New Request Specialty Diagnoses / Procedures Referred By Dillon varela Referred To Contact [facility] Diagnoses Presence of drug coated stent in left circumflex coronary artery S/P CABG x 1 Coronary artery disease involving [place] coronary artery [place] heart without angina pectoris Personal history of DVT (deep vein thrombosis) Procedures ECG COMPLETE ECG ROUTINE ECG W/LEAST 12 LDS W/I&[place] [address] [place] [address] [facility] [place] [address] [place] [address] Referral ID Status Reason Start Date Expiration Date Visits Requested Visits Authorized [id number] New Request Auto-Generat ed Referral 05/20/2024 05/20/2025 1 1 [facility] for referral (narrative)No reason for referral information availableJohn [facility] Work Phone: Advance Directives No Advanced Directives Records FoundDocuments on File Type Date Recorded 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 Advance Directive(s) 05/26/2016 6:27 AM Advance Directive Response Recorded Date/ Time Advance Directives No January 24 12:47pm Summary Purpose Family History Relationship Condition Age at Onset Recorded Date/T lavinia Not Specified Sudden cardiac Unknown Hypertension Unknown mother Malignant neoplasm Unknown father Diabetes mellitus Unknown Cardiac disease Unknown Myocardial infarction Unknown grandfather Myocardial infarction Unknown No Family History Records Found Chief Complaint and Reason for Visit Chief Complaint Admit Date Second opinion, varicose March 03, 2025 9:10am Additional Source Comments Patient Care team informatio n (unrecognized section and content) City Driver Relationship Specialty Start Date End Date Kevin oBoker DO PCP - General Family Medicine 06/10/16 [place] [address] [place] [address] Physician Cardiology 07/23/16 [place] [address] [place] [address] Primary Staff Physician Cardiology 02/28/20 City Driver Relationship Specialty Start Date End Date Kevin Booker DO PCP - General Family Medicine 06/10/16 [place] [address] [place] [address] Physician Cardiology 07/23/16 [place] [address] [place] [address] Primary Staff Physician Cardiology 02/28/20 Team Status: Active Member Role Status Dates Dr. Kevin Booker DO Family Provider Active Dr. Kevin Booker DO Primary Care Provider Active Team Status: Inactive Member Role Status Dates Dr. Kevin Booker DO Primary Care Provider Active Start: March 03, 2025 End: March 03, 2025 Dr. Kevin Booker DO Referring Provider Active Start: March 03, 2025 End: March 03, 2025 DIAZ Yee Attending Provider Active Star t: March 03, 2025 End: March 03, 2025 Source Comments (unrecognize d section and content) In the event this informatio n is protected by the Federal Confidentiality of Alcohol and Drug Abuse Patient Records regulations: The Federal rules restrict any use of the information to criminally investigate or prosecute any alcohol or drug abuse patient.[facility] the event this information is protected by the Federal Confidentiality of Alcohol and Drug Abuse Patient Records regulations: The Federal rules restrict any use of the information to criminally investigate or prosecute any alcohol or drug abuse patient.[facility] Reason for Visit (unrecogniz ed section and content) Reason Comments New Patient Reason Comments Established Patient (unrecognized sect ion and content) No Status Records FoundNo Status Records FoundNo Status Records FoundNo Status Records Found INFORMATION SOURCE (unrecogn ized section and content) DATE CREATED AUTHOR 11/11/2023 [facility] ([place]) DATE CREATED AUTHOR AUTHOR'S ORGANIZ ATION 06/08/2024 [facility] DATE CREATED AUTHOR AUTHOR'S ORGANIZ ATION 12/19/2024 [facility] DATE CREATED AUTHOR AUTHOR'S ORGANIZ ATION 05/05/2025 [facility] Goals (unrecognized section and content) Goals may be documented in a n alternate section FOR RECORDS PERTAINING TO PATIENTS WHO ARE OR HAVE BEEN ENROLLED IN A CHEMICAL DEPENDENCY/SUBSTANCEABUSE PROGRAM, SOME INFORMATION MAY BE OMITTED. This clinical summary was aggregated from multiple sources. Caution should be exercised in using it in the provision of clinical care. This summary normalizes information from multiple sources, and as a consequence, information in this document may materially change the coding, format and clinical context of patient data. In addition, data may be omitted in some cases. CLINICAL DECISIONS SHOULD BE BASED ON THE PRIMARY CLINICAL RECORDS. [facility] [employer]. provides no warranty or guarantee of the accuracy or completeness of information in this document.
== END | disposition home or self-care (01) ==
PROVIDERS: PCP Preventive Medicine Occupational Medicine; Referring Provider Physician Assistant; Visit Provider Physician Assistant
DX: R60.0 Localized edema (principal); I82.509 Chronic embolism and thrombosis of unspecified deep veins of unspecified lower extremity; I87.2 Venous insufficiency (chronic) (peripheral)
CPT/HCPCS: 93970